=== PATIENT | male | born 1950 | race Caucasian/White ===

== ENCOUNTER 2022-09-25 14:37 | Inpatient (IN) | payer MEDICARE ==
[2022-09-25] MEDS ORDERED: SODIUM CHLORIDE 0.9% 1,000 ML IV ONE ×2 (15:43→18:56)
[2022-09-25] MEDS ORDERED: VERAPAMIL 2.5 MG/ML 2 ML AMP ONE (17:45)
[2022-09-25] MEDS ORDERED: HEPARIN SODIUM 1,000 UN/ML (10ML VL) ONE (17:45)
[2022-09-25] MEDS ORDERED: TICAGRELOR 90 MG TAB ONE (18:13)
[2022-09-25] MEDS ORDERED: HEPARIN SODIUM 1,000 UN/ML (10ML VL) IV ONE ×2 (18:14→19:19)
[2022-09-25] MEDS ORDERED: MIDAZOLAM 2 MG/2 ML VIAL IV ONE (18:15)
[2022-09-25] MEDS ORDERED: TICAGRELOR 90 MG TAB PO ONE (18:15)
[2022-09-25] MEDS ORDERED: VERAPAMIL SYRINGE (5 MG/10 ML) INTRAARTER ONE (18:15)
[2022-09-25] MEDS: NITROGLYCERIN 1000MCG/10ML SYRINGE INTRACORON ONE ×2 (18:29→18:58)
[2022-09-25] MEDS ORDERED: IOPAMIDOL-370 100ML BTL INJ ONE ×2 (18:34→19:16)
[2022-09-25] MEDS ORDERED: NITROGLYCERIN 1000MCG/10ML SYRINGE IV ONE (19:04)
[2022-09-25] MEDS ORDERED: MAG HYDROX/AL HYDROX/SIMETH 30 ML CUP PO PRN (19:13)
[2022-09-25] MEDS ORDERED: ZOLPIDEM 5 MG TAB PO PRN (19:13)
[2022-09-25] MEDS ORDERED: NITROGLYCERIN SL TABS 0.4 MG TAB SUBLINGUAL PRN (19:13)
[2022-09-25] MEDS ORDERED: ATROPINE SULFATE 0.1 MG/ML 10ML SYRINGE IV PRN (19:13)
[2022-09-25] MEDS ORDERED: RX INFO: IV CONTRAST WAS GIVEN 1 EACH MISC MISCELLANE PRN (19:13)
[2022-09-25] MEDS ORDERED: SODIUM CHLORIDE 0.9% 1,000 ML in EMPTY BAG 1 BAG IV SCH (19:15)
--- NOTE | 2022-09-25 19:19 | P.PCN ---
Date of Procedure: 09/25/22 Operative Findings: PERCUTANEOUS CORONARY INTERVENTION Performing physician Jewel Valiente M.D. Procedure Performed: 1. Successful stenting of the proximal LCx using 3.25 x 15 mm Xience drug- eluting stent with an excellent angiographic results. 2. Successful stending of the mid LAD using 3.5 x 18 mm Xience drug-eluting stent with an excellent angiographic result. 3. Successful balloon angioplasty of the first diagonal branch of the LAD 4. Adjunctive use of intravascular ultrasound Indication: Unstable angina in this 72-year-old gentleman who presented to the hospital with chest discomfort and underwent a heart catheterization at [facility] and that revealed critical 2 vessels CAD Approach: Right radial artery Complications: None Level of Sedation: Moderate with a sedation length of 58 minutes Procedure Discussion: The heart catheterization was performed at [facility]. Anticoagulation was initiated using heparin with continuous ACT monitoring. The left main was engaged using a JL 3.5 guiding catheter. I did wire the left circumflex using a run-through wire. Intravascular ultrasound was performed and showed a diameter of the left circumflex was 3.5 mm. I did balloon angioplasty using 3 mm balloon before I deployed 3.25 x 15 mm stent where the stent was positioned under fluoroscopy guidance and deployed under fluoroscopy guidance. The following angiogram showed an excellent angiographic results. Subsequently the wire was directed toward the LAD. It was positioned in the apical area of the LAD. Subsequently I wire the first diagonal branch using a run-through wire. Balloon angioplasty of the LAD was performed using 3 mm balloon and 4 the diagonal using 2.5 mm balloon. Subsequently I deployed 3.25 x 18 mm stent in the LAD across it that a core the stent was positioned under fluoroscopy guidance and deployed under its nominal pressure. Postdilatation was performed after intravascular ultrasound was performed. I did postdilated using 3.75 mm balloon. Please note that the LAD was imaged as well and showed a diameter about 3.5-4 mm before we did the balloon angioplasty. The procedure was completed was no complication. Postprocedure Management: 1. Dual antiplatelet therapy using aspirin and Brilinta for 6 month 2. Aggressive cholesterol control 3. Risk factors modification
[2022-09-25] MEDS: TICAGRELOR 90 MG TAB PO SCH (19:44)
[2022-09-25] MEDS: ATORVASTATIN 80 MG TAB PO SCH (19:44)
[2022-09-26 07:00] LABS: African American GFR (CKD) >90 (>60 ml/min/1.73 sqM); Non-African American GFR(CKD) 90 (>60 ml/min/1.73 sqM)
[2022-09-26] MEDS: ASPIRIN 81 MG PO SCH (10:09)
[2022-09-26] MEDS: TICAGRELOR 90 MG TAB PO SCH ×2 (10:09→23:52)
--- NOTE | 2022-09-26 13:18 | P.PN ---
Subjective HISTORY OF PRESENT ILLNESS: This is a 72-year-old male who underwent cardiac catheterization yesterday with Dr. Ibarra. Patient underwent stenting of the proximal left circumflex and mid LAD. Patient also underwent balloon angioplasty of first diagnosed branch of LAD. Patient examined this morning at the bedside. Patient denies chest pain or pressure. He denies shortness of breath. Vital signs are stable. Echocardiogram performed at [facility] revealed normal left ventricular systolic function, mild mitral regurgitation, and aortic sclerosis without stenosis. PHYSICAL EXAM: VITAL SIGNS: Reviewed. GENERAL: Well-developed in no acute distress. NECK: Supple. No JVD or thyromegaly LUNGS: Respirations even and unlabored. Lungs essentially clear to auscultation bilaterally. HEART: Regular rate and rhythm. S1 and S2 heard. EXTREMITIES: Normal range of motion. No clubbing or cyanosis. Peripheral pulses intact. No lower extremity edema ASSESSMENT: Chest pain, status post cardiac catheterization as above Hypothyroidism PLAN: Continue doing antiplatelet therapy with aspirin and Brilinta Continue high intensity statin No beta tim at this time secondary to bradycardia Continue to monitor patient for an additional 24 hours Anticipate discharge home tomorrow Nurse practitioner note has been reviewed by physician. Signing provider agrees with the documented findings, assessment, and plan of care. Objective - Vital Signs Vital signs: Vital Signs Temp 97.6 F 09/26/22 08:00 Pulse 58 L 09/26/22 08:00 Resp 16 09/26/22 08:00 BP 103/61 09/26/22 08:00 Pulse Ox 98 09/26/22 09:01 FiO2 Intake & Output 09/25/22 09/26/22 09/26/22 18:59 06:59 18:59 Intake Total 500 540 Balance 500 540 Weight 99.337 kg 99.337 kg Intake: IV 500 Oral 540 Other: Voiding Method Toilet # Voids 1 - Labs CBC & Chem 7: 09/26/22 06:16
[2022-09-26 15:31] VITALS: BMI 28.8
[2022-09-26] MEDS: LEVOTHYROXINE 125 MCG TAB PO SCH (17:09)
[2022-09-26] MEDS: ATORVASTATIN 80 MG TAB PO SCH (23:52)
--- NOTE | 2022-09-27 01:24 | HP ---
HISTORY AND PHYSICAL A 72-year-old white male, came transferred from [facility] after heart catheterization shows LAD blockages. He was getting chest pain and exertional angina doing outside work in his yard. He is found to have stents placed in his LAD x2 and maybe a right coronary artery balloon angioplasty. He is doing well. Currently at this time, walking in his room. He is going to be kept another 24 hours per Cardiology. MEDICATIONS: He is on, 1. Lipitor 80 mg daily. 2. Aspirin 81 mg daily. 3. Brilinta 90 mg b.i.d. 4. Ambien p.r.n. for sleep 5 mg. 5. Nitrostat sublingual p.r.n. CONDITION: Stable. PROGNOSIS: Guarded. Ambulate as tolerated. He also takes Levoxyl at home. He needs to be placed back on this at this time. REVIEW OF SYSTEMS: A 14-point review of systems currently at this time is good. PHYSICAL EXAMINATION: VITAL SIGNS: Temperature 97.4, pulse 54 to 61, respiratory rate 16 to 18, blood pressure 103 to 120 over 60s to 70s, O2 of 100% on room air. CARDIOVASCULAR: S1, S2. LUNGS: Clear. GI: Soft. HEMATOLOGY: Negative Homans. PSYCH: Fair mood and affect. NEUROLOGIC: Alert and oriented x3. ASSESSMENT: Exertional angina. Ejection fraction on echo was 53%, status post angioplasty for coronary artery disease. Stents were placed x2. Possible balloon angioplasty, started on stents. Scanty beta blockers due to hypotension, possibly initiate a low dose if his blood pressure comes up. Continue current treatments. Prognosis is guarded. Possible discharge home tomorrow if cardiology clears. MMODL / IJN: [id number] /
[2022-09-27] MEDS: LEVOTHYROXINE 125 MCG TAB PO SCH (06:35)
[2022-09-27 08:27] LABS: Basophils % (A) 0 %; Eosinophils # (A) 0.2 k/uL (0-0.7); Eosinophils % (A) 3 %; HCT 40.5 % (39.0-53.0); HGB 13.7 gm/dL (13.0-17.5); Lymphocytes # (A) 0.9 k/uL (1.0-4.8); Lymphocytes % (A) 19 %; MCH 30.8 pg (25.0-35.0); MCHC 33.8 g/dL (31.0-37.0); MCV 91.3 fL (80.0-100.0); Mean Platelet Volume 7.1; Monocytes # (A) 0.3 k/uL (0-1.0); Monocytes % (A) 6 %; Neutrophils # (A) 3.6 k/uL (1.3-7.7); Neutrophils % (A) 71 %; Platelet Count 215 k/uL (150-450); RBC 4.44 m/uL (4.30-5.90); RDW 13.1 % (11.5-15.5); WBC 5.1 k/uL (3.8-10.6)
[2022-09-27] MEDS: ASPIRIN 81 MG PO SCH (08:57)
[2022-09-27] MEDS: TICAGRELOR 90 MG TAB PO SCH (08:57)
[2022-09-27 08:59] LABS: Potassium 3.8 mmol/L (3.5-5.1)
[2022-09-27 09:00] LABS: African American GFR (CKD) >90 (>60 ml/min/1.73 sqM); Anion Gap 8 mmol/L; Blood Urea Nitrogen 10 mg/dL (9-20); Calcium 8.3 mg/dL (8.4-10.2); Carbon Dioxide 24 mmol/L (22-30); Chloride 107 mmol/L (98-107); Glucose 120 mg/dL (74-99); Magnesium 2.1 mg/dL (1.6-2.3); Non-African American GFR(CKD) >90 (>60 ml/min/1.73 sqM); Sodium 139 mmol/L (137-145)
--- NOTE | 2022-09-27 13:09 | P.PN ---
Subjective HISTORY OF PRESENT ILLNESS: This is a 72-year-old male who underwent cardiac catheterization yesterday with Dr. Ibarra. Patient underwent stenting of the proximal left circumflex and mid LAD. Patient also underwent balloon angioplasty of first diagnosed branch of LAD. Patient examined this morning at the bedside. Patient denies chest pain or pressure. He denies shortness of breath. Vital signs are stable. Echocardiogram performed at [facility] revealed normal left ventricular systolic function, mild mitral regurgitation, and aortic sclerosis without stenosis. 09/27/2022 Patient examined this morning. Patient is sitting up in the chair. He denies chest pain or pressure. He denies shortness of breath. He has been up ambulating without difficulty. Vital signs are stable. PHYSICAL EXAM: VITAL SIGNS: Reviewed. GENERAL: Well-developed in no acute distress. NECK: Supple. No JVD or thyromegaly LUNGS: Respirations even and unlabored. Lungs essentially clear to auscultation bilaterally. HEART: Regular rate and rhythm. S1 and S2 heard. EXTREMITIES: Normal range of motion. No clubbing or cyanosis. Peripheral pulses intact. No lower extremity edema ASSESSMENT: Chest pain, status post cardiac catheterization as above Hypothyroidism PLAN: Continue dual antiplatelet therapy with aspirin and Brilinta Continue high intensity statin No beta tim at this time secondary to bradycardia Patient is stable for discharge home today from a cardiac standpoint Nurse practitioner note has been reviewed by physician. Signing provider agrees with the documented findings, assessment, and plan of care. Objective - Vital Signs Vital signs: Vital Signs Temp 97.9 F 09/27/22 08:00 Pulse 52 L 09/27/22 08:00 Resp 18 09/27/22 08:00 BP 103/63 09/27/22 08:00 Pulse Ox 98 09/27/22 08:35 FiO2 Intake & Output 09/26/22 09/27/22 09/27/22 18:59 06:59 18:59 Intake Total 658 360 Balance 658 360 Weight 99.337 kg Intake: Oral 658 360 Other: Voiding Method Toilet Toilet # Voids 2 1 - Labs CBC & Chem 7: 09/27/22 07:50 09/27/22 07:50 Labs: Abnormal Lab Results - Last 24 Hours (Table) 09/27/22 09/27/22 Range/Units 07:50 07:50 Lymphocytes # 0.9 L (1.0-4.8) k/uL Glucose 120 H (74-99) mg/dL Calcium 8.3 L (8.4-10.2) mg/dL
[2022-09-27 16:59] VITALS: BP 132/78; PULSE 51; RESP 20; TEMP 97.6
--- NOTE | 2022-09-28 03:30 | DS ---
DISCHARGE SUMMARY HISTORY OF PRESENT ILLNESS: A 72-year-old white male came to the hospital with abnormal cardiac catheterization, had stents placed into his mid LAD in his proximal circumflex. He also had a balloon angioplasty of the diagonal to LAD. The patient stabilized medically. He was sent home on Brilinta 90 b.i.d., atorvastatin 80 daily, aspirin 81 daily, nitroglycerin sublingual p.r.n. 0.4 mg every 3 to 5 hours p.r.n. CONDITION: Stable. PROGNOSIS: Guarded. He also go home on his levothyroxine 125 mcg daily. CONDITION: Stable. Follow up as an outpatient with Dr. Valiente. He has an appointment with him as an outpatient. Please see further orders. DIET: As tolerated. MMODL / IJN: [id number] /
== END 2022-09-27 18:48 | disposition home or self-care (01) | DRG 247 ==
LOC: 3SCARD 15:19
PROVIDERS: ADMIT Family Medicine; ATTEND Family Medicine
PROC: B241ZZ3 Ultrasonography of Multiple Coronary Arteries, Intravascular (ICD-10-PCS; 2022-09-25)
PROC: 027135Z Dilation of Coronary Artery, Two Arteries with Two Drug-eluting Intraluminal Devices, Percutaneous Approach (ICD-10-PCS; principal; 2022-09-25 19:45)
PROC: 02703ZZ Dilation of Coronary Artery, One Artery, Percutaneous Approach (ICD-10-PCS; 2022-09-25 19:45)
PROC: 4A023N7 Measurement of Cardiac Sampling and Pressure, Left Heart, Percutaneous Approach (ICD-10-PCS; 2022-09-25 19:45)
PROC: B2161ZZ Fluoroscopy of Right and Left Heart using Low Osmolar Contrast (ICD-10-PCS; 2022-09-25 19:45)
DX: I25.110 Atherosclerotic heart disease of native coronary artery with unstable angina pectoris (principal); E03.9 Hypothyroidism, unspecified; R00.1 Bradycardia, unspecified; I08.0 Rheumatic disorders of both mitral and aortic valves; Z79.82 Long term (current) use of aspirin; Z79.890 Hormone replacement therapy
CPT/HCPCS: 80048; 82565; 83735; 85025; 92921; 92978; 94760

== ENCOUNTER 2022-11-28 09:57 | Observation (INO) | payer MEDICARE ==
[2022-11-28 10:33] LABS: Basophils % (A) 0 %; Eosinophils # (A) 0.1 k/uL (0-0.7); Eosinophils % (A) 2 %; HCT 41.8 % (39.0-53.0); HGB 13.9 gm/dL (13.0-17.5); Lymphocytes # (A) 0.9 k/uL (1.0-4.8); Lymphocytes % (A) 25 %; MCH 30.5 pg (25.0-35.0); MCHC 33.3 g/dL (31.0-37.0); MCV 91.5 fL (80.0-100.0); Mean Platelet Volume 7.3; Monocytes # (A) 0.3 k/uL (0-1.0); Monocytes % (A) 7 %; Neutrophils # (A) 2.4 k/uL (1.3-7.7); Neutrophils % (A) 63 %; Platelet Count 218 k/uL (150-450); RBC 4.57 m/uL (4.30-5.90); RDW 13.3 % (11.5-15.5); WBC 3.7 k/uL (3.8-10.6)
--- NOTE | 2022-11-28 10:41 | ED ---
General Adult HPI - General Chief complaint: Chest Pain Stated complaint: CHEST PAIN SENT BY DR VALIENTE Time Seen by Provider: 11/28/22 10:13 Source: patient, RN notes reviewed, old records reviewed Mode of arrival: ambulatory Limitations: no limitations - History of Present Illness Initial comments: 72-year-old male presenting for evaluation of chest pain. Patient had stents placed 2 months prior. He states that he had a period where he was feeling qu ite good, no chest pain whatsoever. Over the past one week or so he is developed exertional chest discomfort which she states is similar in character but less severe than his [place] 2 months ago. The patient has been compliant with 2 antiplatelet therapy and statin therapy. He denies diaphoresis or vomiting. He is chest pain-free at the time my evaluation. 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 - Related Data Home Medications Medication Instructions Recorded Confirmed Levothyroxine Sodium [Levoxyl] 125 mcg PO DAILY 09/25/22 11/28/22 Previous Rx's Medication Instructions Recorded Aspirin 81 mg PO DAILY #90 tab 09/27/22 Atorvastatin [Lipitor] 80 mg PO HS #90 tab 09/27/22 Nitroglycerin Sl Tabs [Nitrostat] 0.4 mg SUBLINGUAL Q5M PRN #100 tab 09/27/22 Ticagrelor [Brilinta] 90 mg PO BID #180 tab 09/27/22 Allergies Allergy/AdvReac Type Severity Reaction Status Date / Time No Known Allergies Allergy Verified 11/28/22 10:40 Review of Systems ROS Statement: Those systems with pertinent positive or pertinent negative responses have been documented in the HPI. ROS Other: All systems not noted in ROS Statement are negative. Past Medical History Past Medical History: Hyperlipidemia Additional Past Medical History / Comment(s): 2 stents placed August 2022. History of Any Multi-Drug Resistant Organisms: None Reported Past Surgical History: No Surgical Hx Reported, Heart Catheterization With Stent Past Anesthesia/Blood Transfusion Reactions: No Reported Reaction Past Psychological History: No Psychological Hx Reported Smoking Status: Never smoker Past Alcohol Use History: None Reported Past Drug Use History: None Reported - Past Family History Father Family Medical History: Congestive Heart Failure (CHF) Mother Family Medical History: Dementia General Exam Limitations: no limitations General appearance: alert, in no apparent distress Head exam: Present: atraumatic, normocephalic Eye exam: Present: normal appearance, PERRL ENT exam: Present: normal exam Neck exam: Present: normal inspection. Absent: tenderness, meningismus Respiratory exam: Present: normal lung sounds bilaterally. Absent: respiratory distress, wheezes Cardiovascular Exam: Present: regular rate, normal rhythm GI/Abdominal exam: Present: soft. Absent: distended, tenderness, guarding Extremities exam: Present: normal inspection, normal capillary refill. Absent: pedal edema, calf tenderness Neurological exam: Present: alert, oriented X3, CN II-XII intact. Absent: motor sensory deficit Psychiatric exam: Present: normal affect, normal mood Skin exam: Present: warm, dry, intact. Absent: cyanosis, diaphoretic Course Vital Signs 11/28/22 11/28/22 10:03 11:00 Temperature 97.8 F Pulse Rate 60 58 L Respiratory 16 18 Rate Blood Pressure 158/83 157/74 O2 Sat by Pulse 99 99 Oximetry Medical Decision Making - Medical Decision Making Was pt. sent in by a medical professional or institution (, PA, BENEFITS SPECIALIST RECRUITER, urgent care, hospital, or halfway...) When possible be specific @ -Sent in by cardiology Did you speak to anyone other than the patient for history (EMS, parent, family, police, friend...)? What history was obtained from this source @ -No Did you review nursing and triage notes (agree or disagree)? Why? @ -I reviewed and agree with nursing and triage notes Were old charts reviewed (outside hosp., previous admission, EMS record, old EKG, old radiological studies, urgent care reports/EKG's, halfway records)? Report findings @ -No old charts were reviewed Differential Diagnosis (chest pain, altered mental status, abdominal pain women, abdominal pain men, vaginal bleeding, weakness, fever, dyspnea, syncope, headache, dizziness, GI bleed, back pain, seizure, CVA, palpatations, mental health, musculoskeletal)? @ Differential Chest Pain: Stable Angina, Unstable Angina, STEMI, NSTEMI Aortic Dissection, Pneumothorax, Musculoskeletal, Esophageal Spasm GERD, Cholecystitis, Pancreatitis, Zoster, this is not meant to be an all-inclusive list. EKG interpreted by me (3pts min.). @ -EKG: Sinus bradycardia, intraventricular conduction delay, rate 55, HI interval 157, QRS duration 116, QTC 424, similar QRS morphology compared to previous EKG in August 2022. X-rays interpreted by me (1pt min.). @Negative for acute cardiopulmonary findings, no pneumothorax, no focal pneumonia. Normal cardiac silhouette. CT interpreted by me (1pt min.). @ -None done U/S interpreted by me (1pt. min.). @ -None done What testing was considered but not performed or refused? (CT, X-rays, U/S, labs)? Why? @ -None What meds were considered but not given or refused? Why? @ -None Did you discuss the management of the patient with other professionals (professionals i.e. , PA, BENEFITS SPECIALIST RECRUITER, lab, RT, psych nurse, social science instructor, keeper helper, teacher, chief learning officer, case making machine operator)? Give summary @ -EMH Was smoking cessation discussed for >3mins.? @ -No Was critical care preformed (if so, how long)? @ -No Were there social determinants of health that impacted care today? How? (Radhika elessness, low income, unemployed, alcoholism, drug addiction, transportation, low edu. Level, literacy, decrease access to med. care, alf, rehab)? @ -No Was there de-escalation of care discussed even if they declined (Discuss DNR or withdrawal of care, Hospice)? DNR status @ -No What co-morbidities impacted this encounter? (DM, HTN, Smoking, COPD, CAD, Cancer, CVA, ARF, Chemo, Hep., AIDS, mental health diagnosis, sleep apnea, morbid obesity)? @ -Coronary artery disease Was patient admitted / discharged? Hospital course, mention meds given and route, prescriptions, significant lab abnormalities, going to OR and other pertinent info. @ -Patient will be admitted for serial chronic enzymes, telemetry, cardiology consultation. Undiagnosed new problem with uncertain prognosis? @ -No Drug Therapy requiring intensive monitoring for toxicity (Heparin, Nitro, Insulin, Cardizem)? @ -No Were any procedures done? @ -No Diagnosis/symptom? @ -[Chest pain Acute, or Chronic, or Acute on Chronic? @ Acute Uncomplicated (without systemic symptoms) or Complicated (systemic symptoms)? @ -default Side effects of treatment? @ -No Exacerbation, Progression, or Severe Exacerbation? @ -No Poses a threat to life or bodily function? How? (Chest pain, [place], [place], pneumonia, PE, COPD, DKA, ARF, appy, cholecystitis, CVA, Diverticulitis, Homicidal, Suicidal, threat to staff... and all critical care pts) @ -Yes, chest pain - Lab Data Result diagrams: 11/28/22 10:24 11/28/22 10:24 Lab Results 11/28/22 11/28/22 11/28/22 Range/Units 10:24 10:24 10:24 WBC 3.7 L (3.8-10.6) k/uL RBC 4.57 (4.30-5.90) m/uL Hgb 13.9 (13.0-17.5) gm/dL Hct 41.8 (39.0-53.0) % MCV 91.5 (80.0-100.0) fL MCH 30.5 (25.0-35.0) pg MCHC 33.3 (31.0-37.0) g/dL RDW 13.3 (11.5-15.5) % Plt Count 218 (150-450) k/uL MPV 7.3 Neutrophils % 63 % Lymphocytes % 25 % Monocytes % 7 % Eosinophils % 2 % Basophils % 0 % Neutrophils # 2.4 (1.3-7.7) k/uL Lymphocytes # 0.9 L (1.0-4.8) k/uL Monocytes # 0.3 (0-1.0) k/uL Eosinophils # 0.1 (0-0.7) k/uL Basophils # 0.0 (0-0.2) k/uL PT 10.1 (9.0-12.0) sec INR 0.9 (<1.2) APTT 22.9 (22.0-30.0) sec Sodium 139 (137-145) mmol/L Potassium 4.0 (3.5-5.1) mmol/L Chloride 104 (98-107) mmol/L Carbon Dioxide 27 (22-30) mmol/L Anion Gap 8 mmol/L BUN 13 (9-20) mg/dL Creatinine 0.73 (0.66-1.25) mg/dL Est GFR (CKD-EPI)AfAm >90 (>60 ml/min/1.73 sqM) Est GFR (CKD-EPI)NonAf >90 (>60 ml/min/1.73 sqM) Glucose 103 H (74-99) mg/dL Calcium 9.2 (8.4-10.2) mg/dL Magnesium 2.0 (1.6-2.3) mg/dL Total Bilirubin 0.8 (0.2-1.3) mg/dL AST 33 (17-59) U/L ALT 31 (4-49) U/L Alkaline Phosphatase 66 (38-126) U/L Troponin I (0.000-0.034) ng/mL NT-Pro-B Natriuret Pep 197 pg/mL Total Protein 7.2 (6.3-8.2) g/dL Albumin 4.3 (3.5-5.0) g/dL 11/28/22 Range/Units 10:24 WBC (3.8-10.6) k/uL RBC (4.30-5.90) m/uL Hgb (13.0-17.5) gm/dL Hct (39.0-53.0) % MCV (80.0-100.0) fL MCH (25.0-35.0) pg MCHC (31.0-37.0) g/dL RDW (11.5-15.5) % Plt Count (150-450) k/uL MPV Neutrophils % % Lymphocytes % % Monocytes % % Eosinophils % % Basophils % % Neutrophils # (1.3-7.7) k/uL Lymphocytes # (1.0-4.8) k/uL Monocytes # (0-1.0) k/uL Eosinophils # (0-0.7) k/uL Basophils # (0-0.2) k/uL PT (9.0-12.0) sec INR (<1.2) APTT (22.0-30.0) sec Sodium (137-145) mmol/L Potassium (3.5-5.1) mmol/L Chloride (98-107) mmol/L Carbon Dioxide (22-30) mmol/L Anion Gap mmol/L BUN (9-20) mg/dL Creatinine (0.66-1.25) mg/dL Est GFR (CKD-EPI)AfAm (>60 ml/min/1.73 sqM) Est GFR (CKD-EPI)NonAf (>60 ml/min/1.73 sqM) Glucose (74-99) mg/dL Calcium (8.4-10.2) mg/dL Magnesium (1.6-2.3) mg/dL Total Bilirubin (0.2-1.3) mg/dL AST (17-59) U/L ALT (4-49) U/L Alkaline Phosphatase (38-126) U/L Troponin I <0.012 (0.000-0.034) ng/mL NT-Pro-B Natriuret Pep pg/mL Total Protein (6.3-8.2) g/dL Albumin (3.5-5.0) g/dL Disposition Clinical Impression: Chest pain Disposition: ADMITTED IP TO THIS HOSP Condition: Stable Is patient prescribed a controlled substance at d/c from ED?: No Referrals: Jewel Valiente MD [Primary Care Provider] - 1-2 days Time of Disposition: 11:13
[2022-11-28 10:43] LABS: ALT 31 U/L (4-49); AST 33 U/L (17-59); African American GFR (CKD) >90 (>60 ml/min/1.73 sqM); Albumin 4.3 g/dL (3.5-5.0); Alkaline Phosphatase 66 U/L (38-126); Anion Gap 8 mmol/L; Blood Urea Nitrogen 13 mg/dL (9-20); Calcium 9.2 mg/dL (8.4-10.2); Carbon Dioxide 27 mmol/L (22-30); Chloride 104 mmol/L (98-107); Glucose 103 mg/dL (74-99); INR 0.9 (<1.2); Non-African American GFR(CKD) >90 (>60 ml/min/1.73 sqM); Partial Thromboplastin Time 22.9 sec (22.0-30.0); Prothrombin Time 10.1 sec (9.0-12.0); Sodium 139 mmol/L (137-145); Total Bilirubin 0.8 mg/dL (0.2-1.3); Total Protein 7.2 g/dL (6.3-8.2)
[2022-11-28 10:51] LABS: NT-Pro-B-Type Natriuretic Pept 197 pg/mL
--- NOTE | 2022-11-28 10:57 | XR ---
EXAMINATION TYPE: XR chest 2V DATE OF EXAM: 11/28/2022 10:46 AM COMPARISON: None TECHNIQUE: XR chest 2V Frontal and lateral views of the chest. CLINICAL INDICATION:Male, 72 years old with history of Chest Pain; FINDINGS: Lungs/Pleura: There is no evidence of pleural effusion, focal consolidation, or pneumothorax. Pulmonary vascularity: Unremarkable. Heart/mediastinum: Cardiomediastinal silhouette is unremarkable. Musculoskeletal: No acute osseous pathology. Mild degenerative changes of the thoracic spine. IMPRESSION: No acute cardiopulmonary disease/process.
[2022-11-28] MEDS ORDERED: NALOXONE 0.4 MG/ML 1 ML VIAL IV PRN (11:13)
[2022-11-28] MEDS ORDERED: ACETAMINOPHEN TAB 325 MG TAB PO PRN (11:13)
[2022-11-28] MEDS ORDERED: NITROGLYCERIN SL TABS 0.4 MG TAB SUBLINGUAL PRN (11:15)
--- NOTE | 2022-11-28 13:55 | P.HPIM ---
History of Present Illness H&P Date: 11/28/22 This is a pleasant 72-year-old male who presented to the emergency department with exertional chest pain. Patient reports he recently had stents placed in August of this year and was cleared to resume activity. Patient had been vacationing and in [facility] and started experiencing some mild chest burning and squeezing sensation during exertion. Patient will rest and this feeling would subside. Patient reports this feeling is less intense than when he came in and had stents placed. Patient reports he follows with Dr. Jones out of [facility] system with past medical history of hyperlipidemia, heart catheterization with stenting in August 2022, otherwise denies any other medical history. Patient does not smoke and denies alcohol use and denies any illicit drug use. Patient denies having any dizziness or lightheadedness or increased shortness of breath with these symptoms. Patient reports this had been ongoing for a few days prior to coming here and came for further evaluation. Cardiology has been consulted and patient is being admitted under observation for cardiology consult and evaluation. Chest x-ray shows no acute cardiopulmonary disease or process, EKG shows sinus bradycardia with a heart rate of 55 bpm. Labs reviewed show a WBC of 3.7, hemoglobin is stable at 13.9, platelets are 218, INR 0.9, sodium 139 with a potassium of 4.0, BUN is 13 and creatinine is 0.73, calcium 9.2, magnesium 2.0, troponins 2 have been negative and BNP is 197. Will await cardiology evaluation. Review Of Systems: Constitutional: No fever, no chills, no night sweats. No weight change. No weakness, fatigue or lethargy. No daytime sleepiness. EENT: No headache. No blurred vision or double vision, no loss of vision. No loss of Hearing, no ringing in the ears, no dizziness. No nasal drainage or congestion. No epistaxis. No sore throat. Lungs: No shortness of breath, cough, no sputum production. No wheezing. Cardiovascular: Reports intermittent chest pain with a burning/squeezing sensation with exertion, no lower extremity edema. No palpitations. No paroxysmal nocturnal dyspnea. No orthopnea. No lightheadedness or dizziness. No syncopal episodes. Abdominal: No abdominal pain. No nausea, vomiting. No diarrhea. No constipation. No bloody or tarry stools.. No loss of appetite. Genitourinary: No dysuria, increased frequency, urgency. No urinary retention. Musculoskeletal: No myalgias. No muscle weakness, no gait dysfunction, no frequent falls. No back pain. No neck pain. Integumentary: No wounds, no lesions. No rash or pruritus. No unusual bruising. No change in hair or nails. Neurologic: No aphasia. No facial droop. No change in mentation. No head injury. No headache. No paralysis. No paresthesia. Psychiatric: No depression. No anxiety. No mood swings. Endocrine: No abnormal blood sugars. No weight change. No excessive sweating or thirst. No cold intolerance. PHYSICAL EXAMINATION: GENERAL: The patient is alert and oriented x4, Well developed, well nourished. HEENT: Pupils are round and equally reacting to light. EOMI. no scleral icterus. No conjunctival pallor. Normocephalic, atraumatic. No pharyngeal erythema. No thyromegaly. CARDIOVASCULAR: S1 and S2 muffled PULMONARY: Breath sounds clear to auscultation with no wheezing or rhonchi noted ABDOMEN: soft. Nontender on exam. non-distended, normoactive bowel sounds. No palpable organomegaly. MUSCULOSKELETAL: No joint swelling or deformity. EXTREMITIES: No cyanosis, clubbing, or pedal edema. NEUROLOGICAL: Gross neurological examination did not reveal any focal deficits. SKIN: No rashes. Assessment: Chest pain, ruled out ACS with negative troponins Recent history of stenting of the proximal left circumflex and mid LAD in August 2022 History of hypothyroidism GI prophylaxis DVT prophylaxis Full code Plan: Patient is being admitted for chest pain for cardiology evaluation. Patient recently underwent stenting [address] Valiente All medications reviewed and resumed Troponins 2 are negative awaiting a third troponin and will be evaluated by cardiology. Continue telemetry monitoring Labs reviewed and within normal limits Await cardiology evaluation. The impression and plan of care has been dictated by Annabelle Cedeño, nurse practitioner as directed. Dr. Cassandra MD I have performed a history and examination and MDM of this patient, discussed the same with the dictator, and agree with the dictator's assessment and plan as written ,documented as a scribe. Based on total visit time, I have performed more than 50% of the visit. Any additional findings or plans will be noted. Past Medical History Past Medical History: Hyperlipidemia Additional Past Medical History / Comment(s): 2 stents placed August 2022. History of Any Multi-Drug Resistant Organisms: None Reported Past Surgical History: No Surgical Hx Reported, Heart Catheterization With Stent Past Anesthesia/Blood Transfusion Reactions: No Reported Reaction Past Psychological History: No Psychological Hx Reported Smoking Status: Never smoker Past Alcohol Use History: None Reported Past Drug Use History: None Reported - Past Family History Father Family Medical History: Congestive Heart Failure (CHF) Mother Family Medical History: Dementia Medications and Allergies Home Medications Medication Instructions Recorded Confirmed Type Levothyroxine Sodium [Levoxyl] 125 mcg PO DAILY 09/25/22 11/28/22 History Aspirin 81 mg PO DAILY #90 tab 09/27/22 11/28/22 Rx Atorvastatin [Lipitor] 80 mg PO HS #90 tab 09/27/22 11/28/22 Rx Nitroglycerin Sl Tabs [Nitrostat] 0.4 mg SUBLINGUAL Q5M PRN #100 tab 09/27/22 11/28/22 Rx Ticagrelor [Brilinta] 90 mg PO BID #180 tab 09/27/22 11/28/22 Rx Allergies Allergy/AdvReac Type Severity Reaction Status Date / Time No Known Allergies Allergy Verified 11/28/22 10:40 Physical Exam Vitals: Vital Signs Temp Pulse Resp BP Pulse Ox 11/28/22 12:00 50 L 18 113/75 98 11/28/22 11:00 58 L 18 157/74 99 11/28/22 10:03 97.8 F 60 16 158/83 99 Intake and Output 11/27/22 11/28/22 11/28/22 22:59 06:59 14:59 Other: Weight 90.718 kg Results CBC & Chem 7: 11/28/22 10:24 11/28/22 10:24 Labs: Abnormal Lab Results - Last 24 Hours (Table) 11/28/22 11/28/22 Range/Units 10:24 10:24 WBC 3.7 L (3.8-10.6) k/uL Lymphocytes # 0.9 L (1.0-4.8) k/uL Glucose 103 H (74-99) mg/dL
[2022-11-28] MEDS: ATORVASTATIN 80 MG TAB PO SCH (20:45)
[2022-11-28] MEDS: TICAGRELOR 90 MG TAB PO SCH (20:46)
[2022-11-29] MEDS: LEVOTHYROXINE 125 MCG TAB PO SCH (05:58)
[2022-11-29] MEDS: ASPIRIN 81 MG PO SCH (08:51)
[2022-11-29] MEDS: TICAGRELOR 90 MG TAB PO SCH ×2 (08:52→20:21)
[2022-11-29] MEDS ORDERED: ALPRAZolam 0.5 MG TAB PO PRN (10:27)
[2022-11-29] MEDS ORDERED: ALPRAZolam 0.25 MG TAB PO PRN (10:27)
[2022-11-29] MEDS ORDERED: NITROGLYCERIN SL TABS 0.4 MG TAB SUBLINGUAL PRN (10:27)
--- NOTE | 2022-11-29 10:35 | P.CRDCN ---
History of Present Illness History of present illness: HISTORY OF PRESENT ILLNESS: This is a 72-year-old male with a past medical history significant for hypertension, hyperlipidemia, and coronary artery disease with recent stenting of the circumflex and LAD in August 2022. Patient follows in the office with Dr. Valiente. We have been asked to see the patient in consultation for chest pain. Patient examined at the bedside. patient states he has been doing well since his stenting in August. He states he has not been having any chest pain or pressure. He denied having any shortness of breath. He states that he was up [place] last week and on he was hiking when he developed chest pain. He states he had episodes of chest pain on Saturday and Saturday but it was very minimal at that time. He states on Saturday he took his dog for a walk and began to have chest pain again so he turned around and went back to rest and his pain resolved. He states on Saturday he came home from [facility] and has been taking it easy and decided to come to the emergency room for further evaluation. he states the pain is only with exertion. He reports the pain feels similar to the pain he experienced in August when he required stenting. At the time of examination, the patient denies chest pain or pressure. the patient states he has been compliant with his medications. * EKG reveals sinus mechanism with no signs of acute ischemia * Chest xray negative for acute process * Current home cardiac medications include aspirin 81 mg daily, Lipitor 80 mg at night, and Brilinta 90mg BID * patient underwent echocardiogram in August 2022 revealing normal ejection fraction with aortic sclerosis REVIEW OF SYSTEMS: At the time of my exam: CONSTITUTIONAL: Denies fever or chills. HEENT: Denies blurred vision, vision changes, or eye pain. Denies hemoptysis CARDIOVASCULAR: Denies chest pain. Denies orthopnea. Denies PND. Denies palpitations RESPIRATORY: Denies shortness of breath. GASTROINTESTINAL: Denies abdominal pain. Denies nausea or vomiting. HEMATOLOGIC: Denies bleeding disorders. GENITOURINARY: Denies any blood in urine. SKIN: Denies pruitis. Denies rash. PHYSICAL EXAM: VITAL SIGNS: Reviewed. GENERAL: Well-developed in no acute distress. HEENT: Head is normocephalic. Pupils are equal, round. Sclerae anicteric. Mucous membranes of the mouth are moist. Neck supple. No JVD or thyromegaly LUNGS: Respirations even and unlabored. Lungs essentially clear to auscultation bilaterally. HEART: Regular rate and rhythm. S1 and S2 heard. ABDOMEN: Soft. Nondistended. Nontender. EXTREMITIES: Normal range of motion. No clubbing or cyanosis. Peripheral pulses intact. No lower extremity edema NEUROLOGIC: Awake and alert. Oriented x 3. ASSESSMENT: Chest pain, concerning for unstable angina Coronary artery disease with recent stenting of the circumflex and LAD, August 2022 Hypertension Hyperlipidemia PLAN: Resume home cardiac medications NPO at midnight Patient to undergo cardiac catheterization tomorrow with Dr. Valiente Further recommendations pending patient's course Nurse practitioner note has been reviewed by physician. Signing provider agrees with the documented findings, assessment, and plan of care. Past Medical History Past Medical History: Hyperlipidemia Additional Past Medical History / Comment(s): 2 stents placed August 2022. History of Any Multi-Drug Resistant Organisms: None Reported Past Surgical History: No Surgical Hx Reported, Heart Catheterization With Stent Past Anesthesia/Blood Transfusion Reactions: No Reported Reaction Date of Last Stent Placement:: august 2022 Past Psychological History: No Psychological Hx Reported Smoking Status: Never smoker Past Alcohol Use History: None Reported Past Drug Use History: None Reported - Past Family History Father Family Medical History: Congestive Heart Failure (CHF) Mother Family Medical History: Dementia Medications and Allergies Home Medications Medication Instructions Recorded Confirmed Type Levothyroxine Sodium [Levoxyl] 125 mcg PO DAILY 09/25/22 11/28/22 History Aspirin 81 mg PO DAILY #90 tab 09/27/22 11/28/22 Rx Atorvastatin [Lipitor] 80 mg PO HS #90 tab 09/27/22 11/28/22 Rx Nitroglycerin Sl Tabs [Nitrostat] 0.4 mg SUBLINGUAL Q5M PRN #100 tab 09/27/22 11/28/22 Rx Ticagrelor [Brilinta] 90 mg PO BID #180 tab 09/27/22 11/28/22 Rx Allergies Allergy/AdvReac Type Severity Reaction Status Date / Time No Known Allergies Allergy Verified 11/28/22 10:40 Physical Exam Vitals: Vital Signs Temp Pulse Pulse Pulse Resp BP BP 11/29/22 07:00 97.9 F 55 L 16 128/68 11/29/22 02:20 98.3 F 52 L 13 115/61 11/28/22 19:40 98.1 F 55 L 14 121/67 11/28/22 15:00 98.1 F 54 L 18 124/71 11/28/22 14:00 51 L 16 128/74 11/28/22 13:00 56 L 16 127/75 11/28/22 12:00 50 L 18 113/75 11/28/22 11:00 58 L 18 157/74 11/28/22 10:03 97.8 F 60 16 158/83 Pulse Ox 11/29/22 07:00 100 11/29/22 02:20 98 11/28/22 19:40 97 11/28/22 15:00 100 11/28/22 14:00 99 11/28/22 13:00 99 11/28/22 12:00 98 11/28/22 11:00 99 11/28/22 10:03 99 Intake and Output 11/28/22 11/29/22 11/29/22 22:59 06:59 14:59 Other: # Voids 2 1 Weight 90.718 kg Results 11/28/22 10:24 11/28/22 10:24 Cardiac Enzymes 11/28/22 11/28/22 11/28/22 Range/Units 10:24 10:24 12:16 AST 33 (17-59) U/L Troponin I <0.012 <0.012 (0.000-0.034) ng/mL 11/28/22 Range/Units 15:51 AST (17-59) U/L Troponin I <0.012 (0.000-0.034) ng/mL Coagulation 11/28/22 Range/Units 10:24 PT 10.1 (9.0-12.0) sec APTT 22.9 (22.0-30.0) sec CBC 11/28/22 Range/Units 10:24 WBC 3.7 L (3.8-10.6) k/uL RBC 4.57 (4.30-5.90) m/uL Hgb 13.9 (13.0-17.5) gm/dL Hct 41.8 (39.0-53.0) % Plt Count 218 (150-450) k/uL Comprehensive Metabolic Panel 11/28/22 Range/Units 10:24 Sodium 139 (137-145) mmol/L Potassium 4.0 (3.5-5.1) mmol/L Chloride 104 (98-107) mmol/L Carbon Dioxide 27 (22-30) mmol/L BUN 13 (9-20) mg/dL Creatinine 0.73 (0.66-1.25) mg/dL Glucose 103 H (74-99) mg/dL Calcium 9.2 (8.4-10.2) mg/dL AST 33 (17-59) U/L ALT 31 (4-49) U/L Alkaline Phosphatase 66 (38-126) U/L Total Protein 7.2 (6.3-8.2) g/dL Albumin 4.3 (3.5-5.0) g/dL Current Medications Generic Name Dose Route Start Last Admin Trade Name Freq PRN Reason Stop Dose Admin Acetaminophen 650 mg 11/28/22 11:13 Acetaminophen Tab 325 Mg Tab PO Q6HR PRN Mild Pain or Fever > 100.5 Aspirin 81 mg 11/29/22 09:00 Aspirin 81 Mg PO DAILY RAMOS Atorvastatin Calcium 80 mg 11/28/22 21:00 11/28/22 20:45 Atorvastatin 80 Mg Tab PO Not Given HS RAMOS Levothyroxine Sodium 125 mcg 11/29/22 06:30 11/29/22 05:58 Levothyroxine 125 Mcg Tab PO 125 mcg DAILY@0630 RAMOS Administration Naloxone HCl 0.2 mg 11/28/22 11:13 Naloxone 0.4 Mg/Ml 1 Ml Vial IV Q2M PRN Opioid Reversal Nitroglycerin 0.4 mg 11/28/22 11:15 Nitroglycerin Sl Tabs 0.4 Mg Tab SUBLINGUAL Q5M PRN Chest Pain Ticagrelor 90 mg 11/28/22 21:00 11/28/22 20:46 Ticagrelor 90 Mg Tab PO Not Given BID RAMOS Intake and Output 11/28/22 11/29/22 11/29/22 22:59 06:59 14:59 Other: # Voids 2 1 Weight 90.718 kg 11/28/22 10:24 11/28/22 10:24
[2022-11-29 16:05] LABS: Chol/HDL Ratio 2.79 Ratio; LDL Cholesterol,Calculated 63.5 mg/dL (0.0-131.0)
[2022-11-29] MEDS: ATORVASTATIN 80 MG TAB PO SCH (20:21)
--- NOTE | 2022-11-29 20:54 | P.PN ---
Subjective Progress Note Date: 11/29/22 This is a pleasant 72-year-old male who presented to the emergency department with exertional chest pain. Patient reports he recently had stents placed in August of this year and was cleared to resume activity. Patient had been vacationing and in [facility] and started experiencing some mild chest burning and squeezing sensation during exertion. Patient will rest and this feeling would subside. Patient reports this feeling is less intense than when he came in and had stents placed. Patient reports he follows with Dr. Jones out of [facility] system with past medical history of hyperlipidemia, heart catheterization with stenting in August 2022, otherwise denies any other medical history. Patient does not smoke and denies alcohol use and denies any illicit drug use. Patient denies having any dizziness or lightheadedness or increased shortness of breath with these symptoms. Patient reports this had been ongoing for a few days prior to coming here and came for further evaluation. Cardiology has been consulted and patient is being admitted under observation for cardiology consult and evaluation. Chest x-ray shows no acute cardiopulmonary disease or process, EKG shows sinus bradycardia with a heart rate of 55 bpm. Labs reviewed show a WBC of 3.7, hemoglobin is stable at 13.9, platelets are 218, INR 0.9, sodium 139 with a potassium of 4.0, BUN is 13 and creatinine is 0.73, calcium 9.2, magnesium 2.0, troponins 2 have been negative and BNP is 197. Will await cardiology evaluation. 11/29/2022 Patient is seen in follow-up this morning was recently evaluated by cardiology recommending cardiac catheterization. Troponins 3 have been negative. TSH along with lipid panel ordered and pending. Patient is maintained on the telemetry monitoring and will continue. Patient is afebrile with no reports of shortness of breath or palpitations. Patient has been up and walking and encouraged increase activity as tolerated. Review of systems: Constitutional: No reports of fatigue, fever, or chills Cardiovascular: No reports of chest pain or palpitations Respiratory: No reports of shortness of breath or cough GI: No reports of nausea, vomiting, or diarrhea : No reports of dysuria or retention Neurovascular: No reports of weakness or numbness All medications have been reviewed PHYSICAL EXAMINATION: GENERAL: The patient is alert and oriented x4, Well developed, well nourished. HEENT: Pupils are round and equally reacting to light. EOMI. no scleral icterus. No conjunctival pallor. Normocephalic, atraumatic. No pharyngeal erythema. No thyromegaly. CARDIOVASCULAR: S1 and S2 muffled PULMONARY: Breath sounds clear to auscultation with no wheezing or rhonchi noted ABDOMEN: soft. Nontender on exam. non-distended, normoactive bowel sounds. No palpable organomegaly. MUSCULOSKELETAL: No joint swelling or deformity. EXTREMITIES: No cyanosis, clubbing, or pedal edema. NEUROLOGICAL: Gross neurological examination did not reveal any focal deficits. SKIN: No rashes. Assessment: Chest pain, ruled out ACS with negative troponins Recent history of stenting of the proximal left circumflex and mid LAD in August 2022 History of hypothyroidism GI prophylaxis DVT prophylaxis Full code Plan: Patient is being admitted for chest pain for cardiology evaluation. Patient recently underwent stenting [address] Valiente. Cardiology evaluated the patient recommending cardiac catheterization which is being tentatively sc heduled for tomorrow due to limited rags laborer time. Patient will be nothing by mouth at midnight All medications reviewed and resumed Troponins 3 are negative. Continue telemetry monitoring TSH and lipid panel ordered and pending Labs reviewed and within normal limits Await cardiac catheterization report. The impression and plan of care has been dictated by nurse branden Banda as directed. Dr. Cassandra MD I have performed a history and examination and MDM of this patient, discussed the same with the dictator, and agree with the dictator's assessment and plan as written ,documented as a scribe. Based on total visit time, I have performed more than 50% of the visit. Any additional findings or plans will be noted. Objective - Vital Signs Vital signs: Vital Signs Temp 97.9 F 11/29/22 07:00 Pulse 55 L 11/29/22 07:00 Resp 16 11/29/22 07:00 BP 128/68 11/29/22 07:00 Pulse Ox 100 11/29/22 07:00 FiO2 Intake & Output 11/28/22 11/29/22 11/29/22 18:59 06:59 18:59 Weight 90.718 kg Other: # Voids 0 1 - Labs CBC & Chem 7: 11/28/22 10:24 11/28/22 10:24 Labs: Abnormal Lab Results - Last 24 Hours (Table) 11/28/22 11/28/22 Range/Units 10:24 10:24 WBC 3.7 L (3.8-10.6) k/uL Lymphocytes # 0.9 L (1.0-4.8) k/uL Glucose 103 H (74-99) mg/dL
[2022-11-29] MEDS: SODIUM CHLORIDE 0.9% 1,000 ML in EMPTY BAG 1 BAG IV SCH (22:51)
[2022-11-30] MEDS ORDERED: ASPIRIN 325 MG TAB PO ONE (05:00)
[2022-11-30] MEDS ORDERED: ATORVASTATIN 80 MG TAB PO ONE (05:00)
[2022-11-30] MEDS: LEVOTHYROXINE 125 MCG TAB PO SCH (05:46)
[2022-11-30] MEDS ORDERED: HEPARIN SODIUM,PORCINE (1 ML) 2,500 UNIT in SODIUM CHLORIDE 0.9% 250 ML IRRIGATION PRN (07:00)
[2022-11-30] MEDS ORDERED: HEPARIN SODIUM,PORCINE 10,000 UNIT in SODIUM CHLORIDE 0.9% 1,000 ML IRRIGATION PRN (07:00)
[2022-11-30] MEDS ORDERED: IV FLUID CONTINUATION 1,000 ML IV ONE (09:03)
[2022-11-30] MEDS ORDERED: MIDAZOLAM 2 MG/2 ML VIAL IVP ONE (09:12)
[2022-11-30] MEDS ORDERED: LIDOCAINE 1% INJ 10MG/ML (5 ML VIAL-PF) SQ ONE (09:13)
[2022-11-30] MEDS ORDERED: VERAPAMIL SYRINGE (5 MG/10 ML) INTRAARTER ONE (09:13)
[2022-11-30] MEDS ORDERED: HEPARIN SODIUM 1,000 UN/ML (10ML VL) IV ONE (09:16)
[2022-11-30] MEDS ORDERED: IOPAMIDOL-370 100ML BTL INJ ONE (09:24)
[2022-11-30] MEDS ORDERED: RX INFO: IV CONTRAST WAS GIVEN 1 EACH MISC MISCELLANE PRN (09:30)
[2022-11-30] MEDS ORDERED: SODIUM CHLORIDE 0.9% 1,000 ML IV SCH (09:30)
--- NOTE | 2022-11-30 09:37 | P.PCN ---
Date of Procedure: 11/30/22 Operative Findings: CARDIAC CATHETERIZATION PERFORMING PHYSICIAN: Jewel Valiente MD, RPVI PROCEDURE PERFORMED: 1. Selective right and left coronary angiogram 2. Left heart catheterization 3. Ultrasound-guided access of the right radial artery INDICATION: Unstable angina. This is a 72-year-old gentleman was known CAD and prior stenting of the LCx and LAD presented to the hospital with classical anginal symptoms started a few days ago. His enzymes are unremarkable. His EKG did not show any significant ST or T-wave abnormalities.. COMPLICATION: None APPROACH: Right radial artery LEVEL OF SEDATION: Moderate with a sedation length of 30 minutes PROCEDURE DESCRIPTION: After obtaining an informed consent, the patient was brought to cardiac shipyard laborer. Local anesthesia was performed using lidocaine subcutaneously. The right radial artery was cannulated using Seldinger technique, the guidewire passed easily, following that we advanced a 5-Scottish sheath dilator assembly, the wire and dilator were removed and sheath was flushed. Following that, 2 mg of verapamil along with 5000 unit heparin were given. Selective right and left coronary angiogram using a 6-Scottish JR4 and JL 3.5 catheters. Following that we did left heart catheterization using 6-Scottish pigtail catheter. The procedure was completed there was no complication. SELECTIVE CORONARY ANGIOGRAM: The right coronary artery: Large caliber vessel and a dominant vessel. The PLV branch of the RCA has mild disease appeared to be in the range of 40-50%. Left main: Appears to be angiographically normal. Bifurcates into an LCx and LAD The left circumflex: Large caliber vessel nondominant vessel. The LCx in the midportion is a stented and the stent is patent. Proximally has mild disease only. The circumflex/OM stent is patent and the AV groove circumflex is pinched with disease appears to be in the range of 50% The left anterior descending artery: The proximal LAD appeared to have mild to moderate disease only. The stent in the mid LAD is patent. The distal LAD appears to have also mild to moderate disease with no high-grade stenosis. The LAD across the stent gives rises into a diagonal branch which has a critical lesion but it could be also vasospasm lesion because that lesion was not exist with the last angiogram. HEMODYNAMICS: The LVEDP was 8 mmHg was no significant gradient across aortic valve CONCLUSION: 1. Patent stent in the mid left circumflex/OM 2. Patent stent in the mid LAD. Mild to moderate disease involving the LAD proximal and distal to the stented segment. Critical disease involving a diagonal branch across the stented segment. The disease was not exist on prior heart catheterization from August 2022. It could be related to coronary vasospasm. I would consider conservative medical approach at this point POSTPROCEDURE MANAGEMENT: Medical treatment using oral nitrate
[2022-11-30] MEDS: ASPIRIN 81 MG PO SCH (11:02)
[2022-11-30] MEDS: TICAGRELOR 90 MG TAB PO SCH ×2 (11:05→20:57)
[2022-11-30] MEDS: ISOSORBIDE MONONITRATE ER 30 MG TAB.ER.24H PO SCH (11:05)
[2022-11-30] MEDS: SODIUM CHLORIDE 0.9% 1,000 ML in EMPTY BAG 1 BAG IV SCH (11:07)
[2022-11-30] MEDS: ATORVASTATIN 80 MG TAB PO SCH (20:58)
[2022-11-30 21:48] VITALS: RESP 15
[2022-12-01] MEDS: SODIUM CHLORIDE 0.9% 1,000 ML in EMPTY BAG 1 BAG IV SCH ×2 (01:17→08:00)
[2022-12-01] MEDS: LEVOTHYROXINE 125 MCG TAB PO SCH (06:35)
--- NOTE | 2022-12-01 07:49 | P.PN ---
Subjective Progress Note Date: 11/30/22 This is a pleasant 72-year-old male who presented to the emergency department with exertional chest pain. Patient reports he recently had stents placed in August of this year and was cleared to resume activity. Patient had been vacationing and in [facility] and started experiencing some mild chest burning and squeezing sensation during exertion. Patient will rest and this feeling would subside. Patient reports this feeling is less intense than when he came in and had stents placed. Patient reports he follows with Dr. Jones out of [facility] system with past medical history of hyperlipidemia, heart catheterization with stenting in August 2022, otherwise denies any other medical history. Patient does not smoke and denies alcohol use and denies any illicit drug use. Patient denies having any dizziness or lightheadedness or increased shortness of breath with these symptoms. Patient reports this had been ongoing for a few days prior to coming here and came for further evaluation. Cardiology has been consulted and patient is being admitted under observation for cardiology consult and evaluation. Chest x-ray shows no acute cardiopulmonary disease or process, EKG shows sinus bradycardia with a heart rate of 55 bpm. Labs reviewed show a WBC of 3.7, hemoglobin is stable at 13.9, platelets are 218, INR 0.9, sodium 139 with a potassium of 4.0, BUN is 13 and creatinine is 0.73, calcium 9.2, magnesium 2.0, troponins 2 have been negative and BNP is 197. Will await cardiology evaluation. 11/29/2022 Patient is seen in follow-up this morning was recently evaluated by cardiology recommending cardiac catheterization. Troponins 3 have been negative. TSH along with lipid panel ordered and pending. Patient is maintained on the telemetry monitoring and will continue. Patient is afebrile with no reports of shortness of breath or palpitations. Patient has been up and walking and encouraged increase activity as tolerated. 11/30/2022 Patient is seen and evaluated in follow-up today status post cardiac catheterization which revealed patent stents and some mild disease with cardiology following recommending maximizing medical management. Imdur being added. Patient is afebrile with no reports of chest pain or shortness of breath. Patient appears somewhat lethargic at times and will monitor overnight with discharge planning in 24 hours. Patient drove himself here and has his vehicle here and does not want to be fit and has no other family nearby that is able to pick him up. Will continue on telemetry monitoring. Review of systems: Constitutional: No reports of fatigue, fever, or chills Cardiovascular: No reports of chest pain or palpitations Respiratory: No reports of shortness of breath or cough GI: No reports of nausea, vomiting, or diarrhea : No reports of dysuria or retention Neurovascular: No reports of weakness or numbness All medications have been reviewed PHYSICAL EXAMINATION: GENERAL: The patient is alert and oriented x4, Well developed, well nourished. HEENT: Pupils are round and equally reacting to light. EOMI. no scleral icterus. No conjunctival pallor. Normocephalic, atraumatic. No pharyngeal erythema. No thyromegaly. CARDIOVASCULAR: S1 and S2 muffled PULMONARY: Breath sounds clear to auscultation with no wheezing or rhonchi noted ABDOMEN: soft. Nontender on exam. non-distended, normoactive bowel sounds. No palpable organomegaly. MUSCULOSKELETAL: No joint swelling or deformity. EXTREMITIES: No cyanosis, clubbing, or pedal edema. NEUROLOGICAL: Gross neurological examination did not reveal any focal deficits. SKIN: No rashes. Assessment: Chest pain, ruled out ACS with negative troponins, cardiac catheterization performed today 11/30/2022 with no further stenting performed Recent history of stenting of the proximal left circumflex and mid LAD in August 2022 History of hypothyroidism GI prophylaxis DVT prophylaxis Full code Plan: Patient was admitted for chest pain for cardiology evaluation. Patient recently underwent stenting [address] in [address] Valiente. Cardiology evaluated the patient underwent cardiac catheterization today revealing patent stents all of their is some mild disease noted that was not present on previous cardiac catheterization per cardiology note and recommending maximizing medical management and imdur being added. Patient drove himself here with his own vehicle and has no family close by and will be able to pick him up and patient had sedatives for cardiac cath and will monitor overnight as patient is lethargic and feel unsafe to drive. Patient will be discharged in a.m. patient has been cleared by cardiology for discharge with outpatient follow-up. All medications reviewed and resumed Continue telemetry monitoring Patient will discharge in 24 hours. The impression and plan of care has been dictated by Annabelle Cedeño, nurse practitioner as directed. Dr. Jennie MD I have performed a history and examination and MDM of this patient, discussed the same with the dictator, and agree with the dictator's assessment and plan as written ,documented as a scribe. Based on total visit time, I have performed more than 50% of the visit. Any additional findings or plans will be noted. Objective - Vital Signs Vital signs: Vital Signs Temp 98.0 F 11/30/22 07:00 Pulse 55 L 11/30/22 07:00 Resp 16 11/30/22 07:00 BP 116/73 11/30/22 07:00 Pulse Ox 99 11/30/22 07:00 FiO2 Intake & Output 11/29/22 11/30/22 11/30/22 18:59 06:59 18:59 Intake Total 100 Balance 100 Intake: IV 100 Other: # Voids 1 1 # Bowel Movements 1 - Labs CBC & Chem 7: 11/28/22 10:24 11/28/22 10:24 Labs: Abnormal Lab Results - Last 24 Hours (Table) 11/29/22 Range/Units 09:37 TSH 0.128 L (0.350-5.500) UIU/ML Free (T4) Reflex I 2.43 H (0.80-1.80) ng/dL
[2022-12-01] MEDS: ISOSORBIDE MONONITRATE ER 30 MG TAB.ER.24H PO SCH (08:00)
[2022-12-01] MEDS: ASPIRIN 81 MG PO SCH (08:00)
[2022-12-01] MEDS: TICAGRELOR 90 MG TAB PO SCH (08:00)
[2022-12-01 14:01] VITALS: BP 98/58; PULSE 58; TEMP 98.2
== END 2022-12-01 14:58 | disposition home or self-care (01) ==
LOC: EC 09:57 → 6NMEDSUR 11:13
PROVIDERS: ADMIT Hospitalist; ATTEND Hospitalist
DX: R07.89 Other chest pain (principal); E78.5 Hyperlipidemia, unspecified; R00.1 Bradycardia, unspecified; E03.9 Hypothyroidism, unspecified; I25.2 Old myocardial infarction; I10 Essential (primary) hypertension; I25.10 Atherosclerotic heart disease of native coronary artery without angina pectoris; I70.0 Atherosclerosis of aorta; Z95.5 Presence of coronary angioplasty implant and graft; Z79.890 Hormone replacement therapy; Z79.82 Long term (current) use of aspirin; Z79.02 Long term (current) use of antithrombotics/antiplatelets; Z79.899 Other long term (current) drug therapy; Z81.8 Family history of other mental and behavioral disorders; R53.83 Other fatigue; Z82.49 Family history of ischemic heart disease and other diseases of the circulatory system
CPT/HCPCS: 99285; 36415; 93005; 93458; 76937; 84439; 83880; 80061; 80053; 84443; 83735; 84484; 85025; 85610; 85730; 83036; 71046; G0378 ×4; C1769; C1894; J2250; J2001; J1644; Q9967

== ENCOUNTER 2023-03-17 18:32 | Emergency (ER) | payer MEDICARE ==
[2023-03-17] MEDS ORDERED: SODIUM CHLORIDE 0.9% 1,000 ML IV STA (18:51)
[2023-03-17 19:20] LABS: Basophils % (A) 1 %; Eosinophils # (A) 0.2 k/uL (0-0.7); Eosinophils % (A) 4 %; HCT 40.6 % (39.0-53.0); HGB 13.6 gm/dL (13.0-17.5); Lymphocytes # (A) 1.2 k/uL (1.0-4.8); Lymphocytes % (A) 24 %; MCH 31.1 pg (25.0-35.0); MCHC 33.6 g/dL (31.0-37.0); MCV 92.8 fL (80.0-100.0); Mean Platelet Volume 7.1; Monocytes # (A) 0.3 k/uL (0-1.0); Monocytes % (A) 7 %; Neutrophils # (A) 3.1 k/uL (1.3-7.7); Neutrophils % (A) 63 %; Platelet Count 215 k/uL (150-450); RBC 4.38 m/uL (4.30-5.90); RDW 13.6 % (11.5-15.5); WBC 4.9 k/uL (3.8-10.6)
--- NOTE | 2023-03-17 19:24 | ED ---
Dizziness HPI - General Chief Complaint: Dizziness Stated Complaint: Dizziness Time Seen by Provider: 03/17/23 18:37 Source: patient, RN notes reviewed Mode of arrival: ambulatory Limitations: no limitations - History of Present Illness Initial Comments: 72-year-old male presents emergency Department with chief complaint of dizziness. Patient states he had severe dizziness yesterday states that he associated nausea vomiting states that down the ground and crawl to the felt like is in a pass out or fall over. Patient states he did feel better to drink some water and states he woke up this morning with minimal symptoms. He denies any complaints of headache, focal weakness, chest pain shortness breath. He is concerned as he had stents placed in August and also states that his son has had a CVA. - Related Data Home Medications Medication Instructions Recorded Confirmed Levothyroxine Sodium [Levoxyl] 125 mcg PO DAILY 09/25/22 11/28/22 Previous Rx's Medication Instructions Recorded Aspirin 81 mg PO DAILY #90 tab 09/27/22 Atorvastatin [Lipitor] 80 mg PO HS #90 tab 09/27/22 Nitroglycerin Sl Tabs [Nitrostat] 0.4 mg SUBLINGUAL Q5M PRN #100 tab 09/27/22 Ticagrelor [Brilinta] 90 mg PO BID #180 tab 09/27/22 Acetaminophen Tab [Tylenol] 650 mg PO Q6HR PRN tab 11/30/22 Isosorbide Mononitrate ER [Imdur] 30 mg PO DAILY #90 tab 11/30/22 Allergies Allergy/AdvReac Type Severity Reaction Status Date / Time No Known Allergies Allergy Verified 03/17/23 18:36 Review of Systems ROS Statement: Those systems with pertinent positive or pertinent negative responses have been documented in the HPI. ROS Other: All systems not noted in ROS Statement are negative. Past Medical History Past Medical History: Hyperlipidemia Additional Past Medical History / Comment(s): 2 stents placed August 2022. History of Any Multi-Drug Resistant Organisms: None Reported Past Surgical History: No Surgical Hx Reported Past Anesthesia/Blood Transfusion Reactions: No Reported Reaction Date of Last Stent Placement:: august 2022 Past Psychological History: No Psychological Hx Reported Smoking Status: Never smoker Past Alcohol Use History: None Reported Past Drug Use History: None Reported - Past Family History Father Family Medical History: Congestive Heart Failure (CHF) Mother Family Medical History: Dementia General Exam Limitations: no limitations General appearance: alert, in no apparent distress Head exam: Present: atraumatic, normocephalic, normal inspection Eye exam: Present: normal appearance, PERRL, EOMI. Absent: scleral icterus, conjunctival injection, periorbital swelling ENT exam: Present: normal exam, normal oropharynx, mucous membranes moist, TM's normal bilaterally, normal external ear exam Neck exam: Present: normal inspection, full ROM. Absent: tenderness, meningismus, lymphadenopathy Respiratory exam: Present: normal lung sounds bilaterally. Absent: respiratory distress, wheezes, rales, rhonchi, stridor Cardiovascular Exam: Present: regular rate, normal rhythm, normal heart sounds. Absent: systolic murmur, diastolic murmur, rubs, gallop, clicks Extremities exam: Present: other (All extremities full range of motion, strength 5/5) Neurological exam: Present: alert, oriented X3, CN II-XII intact, normal gait, reflexes normal, other (Finger to nose intact bilaterally). Absent: motor sensory deficit Course Vital Signs 03/17/23 03/17/23 03/17/23 18:34 19:15 20:00 Temperature 97.8 F Pulse Rate 69 50 L 51 L Respiratory 18 18 18 Rate Blood Pressure 144/82 128/78 137/71 O2 Sat by Pulse 97 99 100 Oximetry EKG Findings - EKG Comments: EKG Findings:: EKG performed at 18:47 sinus rhythm with rate of 63 [place] 180 QRS 116 QT/QTC 418/424 - EKG Results: EKG: interpreted by ESTELA Medical Decision Making - Medical Decision Making Was pt. sent in by a medical professional or institution (, PA, INFIRMARY ATTENDANT, urgent care, hospital, or skilled nursing...) When possible be specific @ -No Did you speak to anyone other than the patient for history (EMS, parent, family, police, friend...)? What history was obtained from this source @ -No Did you review nursing and triage notes (agree or disagree)? Why? @ -I reviewed and agree with nursing and triage notes Were old charts reviewed (outside hosp., previous admission, EMS record, old EKG, old radiological studies, urgent care reports/EKG's, skilled nursing records)? Report findings @ -No old charts were reviewed Differential Diagnosis (chest pain, altered mental status, abdominal pain women, abdominal pain men, vaginal bleeding, weakness, fever, dyspnea, syncope, headache, dizziness, GI bleed, back pain, seizure, CVA, palpatations, mental health, musculoskeletal)? @ -[Differential Dizziness: Benign paroxysmal positional Vertigo, Menieres disease, otitis media, acoustic neuroma, vertebrobasilar insufficiency, cerebellar stroke, encephalitis, hypovolemic, arrhythmia, coronary artery syndrome, anemia, this is not meant to be an all-inclusive list EKG interpreted by me (3pts min.). @ -As above X-rays interpreted by me (1pt min.). @ -None done CT interpreted by me (1pt min.). @ -CT brain shows no acute intracranial hemorrhage or mass effect or acute abnormality U/S interpreted by me (1pt. min.). @ -None done What testing was considered but not performed or refused? (CT, X-rays, U/S, labs)? Why? @ -None What meds were considered but not given or refused? Why? @ -None Did you discuss the management of the patient with other professionals (professionals i.e. , PA, INFIRMARY ATTENDANT, lab, RT, psych nurse, health and social care teacher, grout machine operator, teacher, commissary officer, employment case manager)? Give summary @ -No Was smoking cessation discussed for >3mins.? @ -No Was critical care preformed (if so, how long)? @ -No Were there social determinants of health that impacted care today? How? (Homelessness, low income, unemployed, alcoholism, drug addiction, transportation, low edu. Level, literacy, decrease access to med. care, [place] [facility], rehab)? @ -No Was there de-escalation of care discussed even if they declined (Discuss DNR or withdrawal of care, Hospice)? DNR status @ -No What co-morbidities impacted this encounter? (DM, HTN, Smoking, COPD, CAD, Cancer, CVA, ARF, Chemo, Hep., AIDS, mental health diagnosis, sleep apnea, morbid obesity)? @ -None Was patient admitted / discharged? Hospital course, mention meds given and route, prescriptions, significant lab abnormalities, going to OR and other pertinent info. @ -[Discharge patient remains asymptomatic. Patient therefore cup regarding his symptoms that happened yesterday. They're negative patient states he feels comfortable with discharge he is advised to return immediately for any changing symptoms or new symptoms. Undiagnosed new problem with uncertain prognosis? @ -No Drug Therapy requiring intensive monitoring for toxicity (Heparin, Nitro, Insulin, Cardizem)? @ -No Were any procedures done? @ -No Diagnosis/symptom? @ -Dizziness Acute, or Chronic, or Acute on Chronic? @ -Acute Uncomplicated (without systemic symptoms) or Complicated (systemic symptoms)? @ -Uncomplicated Side effects of treatment? @ -No Exacerbation, Progression, or Severe Exacerbation? @ -No Poses a threat to life or bodily function? How? (Chest pain, [place], [place], pneumonia, PE, COPD, DKA, ARF, appy, cholecystitis, CVA, Diverticulitis, Homicidal, Suic idal, threat to staff... and all critical care pts) @ -No - Lab Data Result diagrams: 03/17/23 19:13 03/17/23 19:13 Lab Results 03/17/23 03/17/23 03/17/23 Range/Units 19:13 19:13 19:13 WBC 4.9 (3.8-10.6) k/uL RBC 4.38 (4.30-5.90) m/uL Hgb 13.6 (13.0-17.5) gm/dL Hct 40.6 (39.0-53.0) % MCV 92.8 (80.0-100.0) fL MCH 31.1 (25.0-35.0) pg MCHC 33.6 (31.0-37.0) g/dL RDW 13.6 (11.5-15.5) % Plt Count 215 (150-450) k/uL MPV 7.1 Neutrophils % 63 % Lymphocytes % 24 % Monocytes % 7 % Eosinophils % 4 % Basophils % 1 % Neutrophils # 3.1 (1.3-7.7) k/uL Lymphocytes # 1.2 (1.0-4.8) k/uL Monocytes # 0.3 (0-1.0) k/uL Eosinophils # 0.2 (0-0.7) k/uL Basophils # 0.0 (0-0.2) k/uL Sodium 141 (137-145) mmol/L Potassium 4.2 (3.5-5.1) mmol/L Chloride 104 (98-107) mmol/L Carbon Dioxide 26 (22-30) mmol/L Anion Gap 11 mmol/L BUN 16 (9-20) mg/dL Creatinine 0.78 (0.66-1.25) mg/dL Est GFR (CKD-EPI)AfAm >90 (>60 ml/min/1.73 sqM) Est GFR (CKD-EPI)NonAf >90 (>60 ml/min/1.73 sqM) Glucose 97 (74-99) mg/dL Calcium 9.4 (8.4-10.2) mg/dL Magnesium 2.3 (1.6-2.3) mg/dL Total Bilirubin 0.5 (0.2-1.3) mg/dL AST 31 (17-59) U/L ALT 31 (4-49) U/L Alkaline Phosphatase 72 (38-126) U/L Troponin I <0.012 (0.000-0.034) ng/mL Total Protein 7.3 (6.3-8.2) g/dL Albumin 4.3 (3.5-5.0) g/dL Disposition Clinical Impression: Dizziness Disposition: HOME SELF-CARE Condition: Stable Instructions (If sedation given, give patient instructions): Dizziness (ED) Additional Instructions: Please return to the Emergency Department if symptoms worsen or any other concerns. Is patient prescribed a controlled substance at d/c from ED?: No Referrals: Nonstaff,Physician [Primary Care Provider] - 1-2 days Time of Disposition: 20:37
[2023-03-17 19:32] LABS: ALT 31 U/L (4-49); AST 31 U/L (17-59); African American GFR (CKD) >90 (>60 ml/min/1.73 sqM); Albumin 4.3 g/dL (3.5-5.0); Alkaline Phosphatase 72 U/L (38-126); Anion Gap 11 mmol/L; Blood Urea Nitrogen 16 mg/dL (9-20); Calcium 9.4 mg/dL (8.4-10.2); Carbon Dioxide 26 mmol/L (22-30); Chloride 104 mmol/L (98-107); Glucose 97 mg/dL (74-99); Magnesium 2.3 mg/dL (1.6-2.3); Non-African American GFR(CKD) >90 (>60 ml/min/1.73 sqM); Potassium 4.2 mmol/L (3.5-5.1); Sodium 141 mmol/L (137-145); Total Bilirubin 0.5 mg/dL (0.2-1.3); Total Protein 7.3 g/dL (6.3-8.2)
--- NOTE | 2023-03-17 20:35 | CT ---
EXAMINATION TYPE: CT brain wo con CT DLP: 1232.1 mGycm, Automated exposure control for dose reduction was used. DATE OF EXAM: 03/17/2023 7:39 PM COMPARISON: None. CLINICAL INDICATION:Male, 72 years old with history of dizziness, Dizziness TECHNIQUE: Brain: Axial CT images of the brain were obtained with coronal and sagittal reformats created and rev iewed. Contrast used: None. Oral contrast used: None. FINDINGS: Extra-axial spaces: No abnormal extra-axial fluid collections. Ventricular system: Appear dilated in proportion to the degree of cerebral atrophy. Cerebral parenchyma: No increased attenuation to suggest acute intraparenchymal hemorrhage. The gra y-white matter interface appears maintained. Mild generalized brain atrophy. Scattered hypoattenuat ing areas are seen within the cerebral white matter, nonspecific but most often seen with chronic allie rovascular ischemic changes; mild in degree. Cerebellum: No acute abnormality. Mass effect: No evidence of mass effect or midline shift. Intracranial vasculature: Atherosclerotic calcifications of the larger arteries near the skull base. Soft tissues: Normal. Visualized orbits: Orbital contents appear grossly intact. Calvarium/osseous structures: No evidence of calvarial fracture. Paranasal sinuses and mastoid air cells: Clear MRI is more sensitive for detecting acute processes such as infarct, and may be considered if clinica lly warranted. IMPRESSION: 1. Atrophy and chronic microvascular ischemic white matter changes. 2. No CT evidence of an acute intracranial abnormality.
[2023-03-17 20:37] VITALS: PULSE 51
[2023-03-17 21:00] VITALS: BP 135/77; RESP 16; TEMP 97.6
== END 2023-03-17 20:51 | disposition home or self-care (01) ==
LOC: EC 18:32
DX: R42 Dizziness and giddiness (principal)
CPT/HCPCS: 36415; 70450; 80053; 83735; 84484; 85025; 93005; 96360; 99284

== ENCOUNTER 2023-05-30 14:41 | Emergency (ER) | payer MEDICARE ==
--- NOTE | 2023-05-30 15:08 | ED ---
Extremity Problem HPI - General Source: patient, RN notes reviewed Mode of arrival: ambulatory Limitations: no limitations <Anna Elias - Last Filed: 05/30/23 15:07> <Dorian Zurita - Last Filed: 06/05/23 09:50> - General Chief complaint: Extremity Problem,Nontraumatic Stated complaint: cant raise left arm Time Seen by Provider: 05/30/23 15:07 - History of Present Illness Initial comments: Patient is a 72-year-old male presented to ER with a chief complaint of left arm limited range of motion. Patient states around 1230 this afternoon he noticed he had difficulty moving his left arm. Patient is worried he is having a stroke. Denies any difficulty walking or slurred speech. (Anna Elias) - Related Data Home Medications Medication Instructions Recorded Confirmed Levothyroxine Sodium [Levoxyl] 125 mcg PO DAILY 09/25/22 11/28/22 Previous Rx's Medication Instructions Recorded Aspirin 81 mg PO DAILY #90 tab 09/27/22 Atorvastatin [Lipitor] 80 mg PO HS #90 tab 09/27/22 Nitroglycerin Sl Tabs [Nitrostat] 0.4 mg SUBLINGUAL Q5M PRN #100 tab 09/27/22 Ticagrelor [Brilinta] 90 mg PO BID #180 tab 09/27/22 Acetaminophen Tab [Tylenol] 650 mg PO Q6HR PRN tab 11/30/22 Isosorbide Mononitrate ER [Imdur] 30 mg PO DAILY #90 tab 11/30/22 predniSONE [Deltasone] 20 mg PO BID #8 tab 05/30/23 Allergies Allergy/AdvReac Type Severity Reaction Status Date / Time No Known Allergies Allergy Verified 03/17/23 18:36 Review of Systems ROS Other: All systems not noted in ROS Statement are negative. <Anna Elias - Last Filed: 05/30/23 15:07> ROS Other: All systems not noted in ROS Statement are negative. <Dorian Zurita - Last Filed: 06/05/23 09:50> ROS Statement: Those systems with pertinent positive or pertinent negative responses have been documented in the HPI. Past Medical History Past Medical History: Coronary Artery Disease (CAD), Hyperlipidemia Additional Past Medical History / Comment(s): 2 stents placed August 2022. vertigo History of Any Multi-Drug Resistant Organisms: None Reported Past Surgical History: Heart Catheterization With Stent Past Anesthesia/Blood Transfusion Reactions: No Reported Reaction Date of Last Stent Placement:: august 2022 Past Psychological History: No Psychological Hx Reported Smoking Status: Never smoker Past Alcohol Use History: None Reported Past Drug Use History: None Reported - Past Family History Father Family Medical History: Congestive Heart Failure (CHF) Mother Family Medical History: Dementia <Anna Elias - Last Filed: 05/30/23 15:07> General Exam Limitations: no limitations <Anna Elias - Last Filed: 05/30/23 15:07> - General Exam Comments Initial Comments: Visual Physical Exam Vital signs reviewed General: Well-appearing, nontoxic, no acute distress. Head: Normocephalic, atraumatic Eyes: PERRLA, EOMI ENT: Airway patent Chest: Nonlabored breathing Skin: No visual rash, normal skin tone Neuro: Alert and oriented 3 Musculoskeletal: No gross abnormalities (Anna Elias) Course Vital Signs 05/30/23 05/30/23 15:02 17:40 Temperature 98.6 F 98.1 F Pulse Rate 63 68 Respiratory 16 18 Rate Blood Pressure 143/83 136/80 O2 Sat by Pulse 98 99 Oximetry Medical Decision Making <Anna Elias - Last Filed: 05/30/23 15:07> - Medical Decision Making I performed the quick note portion of this chart. Electronically signed by Anna Elias PA-C (Anna Elias) Disposition <Anna Elias - Last Filed: 05/30/23 15:07> Is patient prescribed a controlled substance at d/c from ED?: No <Dorian Zurita - Last Filed: 06/05/23 09:50> Clinical Impression: Weakness of left shoulder Disposition: HOME SELF-CARE Condition: Good Instructions (If sedation given, give patient instructions): Shoulder Impingement Syndrome (ED) Prescriptions: predniSONE [Deltasone] 20 mg PO BID #8 tab Referrals: Nonstaff,Physician [Primary Care Provider] - 1-2 days Rudolph Qureshi MD [STAFF PHYSICIAN] - 1-2 days Jake Esteban MD [REFERRING] - 1-2 days
--- NOTE | 2023-05-30 15:51 | XR ---
EXAMINATION TYPE: XR shoulder complete 3 views LT DATE OF EXAM: 05/30/2023 Comparison: None Clinical History: 72-year-old male pain, limited ROM Findings: Mild degenerative joint space narrowing and capsular hypertrophy at the AC joint. Subacromial space i s no fracture, subluxation, dislocation is seen. Impression: Mild degenerative change at the AC joint. No acute osseous abnormality seen.
--- NOTE | 2023-05-30 16:11 | CT ---
EXAMINATION TYPE: CT brain naa wo con DATE OF EXAM: 05/30/2023 COMPARISON: 03/17/2023 HISTORY: LT shoulder weakness, cannot move shoulder above head when standing up. CT DLP: 1620.8 mGycm, Automated exposure control for dose reduction was used. CONTRAST: Patient injected with 0 mL of Isovue 300. CT of the brain is performed utilizing 3 mm thick sections through the posterior fossa and 3 mm thick sections through the remaining calvarium. Study is performed within 24 hours of arrival to the hospital. No abnormal hyperdensity is present to suggest an acute intracranial hemorrhage. No mass lesion is evident. No acute infarcts are evident. Ventricles and sulci are appropriate for the patient age. Paranasal sinuses and mastoid air cells within the [id number] are clear. IMPRESSIONS: 1. No acute intracranial process. Follow-up MRI can be performed as clinically indicated. CT cervical spine. COMPARISON: None CT of the cervical spine is performed in the axial plane at 2 mm thick sections. Reconstructed image s in the coronal, and sagittal plane are reviewed on the computer. No acute fractures are evident. Vertebral body alignment is normal. Degenerative disc changes and loss of disc height are noted at C5-6 C6-7. Vertebral body heights are preserved. No spinal canal stenosis is evident. Uncovertebral joint hypertrophy and facet are contributing to right C3-4 foraminal stenosis left fora antony stenosis present C4-5. Bilateral foraminal stenosis present C5-6 with milder foraminal narrowin g C6-7 bilaterally. IMPRESSION: 1. Degenerative disc changes mid cervical spine. 2. Foraminal narrowing due to uncovertebral joint atrophy appears greatest bilaterally at C5-6.
[2023-05-30] MEDS: predniSONE 20 MG TAB PO STA (16:49)
[2023-05-30 18:02] VITALS: BP 136/80; PULSE 68; RESP 18; TEMP 98.1
== END 2023-05-30 17:43 | disposition home or self-care (01) ==
LOC: EC 14:41
DX: M62.512 Muscle wasting and atrophy, not elsewhere classified, left shoulder (principal); I25.10 Atherosclerotic heart disease of native coronary artery without angina pectoris
CPT/HCPCS: 70450; 72125; 99284

== ENCOUNTER → 2023-11-15 | Outpatient (CLI) | payer MEDICARE | END | disposition home or self-care (01) | LOC: LABWHC1 11:54 | PROVIDERS: ATTEND Internal Medicine Interventional Cardiology | DX: E78.2 Mixed hyperlipidemia (principal) | CPT/HCPCS: 36415; 80061; 84450; 84460 ==

== ENCOUNTER → 2024-06-25 | Outpatient (CLI) | payer MEDICARE ==
[2024-06-25 19:10] LABS: ALT 38 U/L (10-49); AST 44 U/L (14-35); Chol/HDL Ratio 2.72 Ratio; LDL Cholesterol,Calculated 87.2 mg/dL (0.0-131.0)
== END | disposition home or self-care (01) ==
LOC: LABWHC1 14:24
PROVIDERS: ATTEND Internal Medicine Interventional Cardiology
DX: E78.2 Mixed hyperlipidemia (principal)
CPT/HCPCS: 36415; 80061; 84450; 84460

== ENCOUNTER 2024-09-23 23:20 | Inpatient (IN) | payer MEDICARE ==
[2024-09-23 23:40] LABS: Basophils # (A) 0.04 10*3/uL (0.00-0.10); Basophils % (A) 0.5 %; Eosinophils % (A) 1.2 %; HCT 38.9 % (39.6-50.0); HGB 13.5 g/dL (13.0-17.0); Lymphocytes # (A) 1.06 10*3/uL (0.90-5.00); Lymphocytes % (A) 12.5 %; MCH 31.8 pg (27.0-32.0); MCHC 34.7 g/dL (32.0-37.0); MCV 91.5 fL (80.0-97.0); Mean Platelet Volume 8.9 fL (9.5-12.2); Monocytes # (A) 0.69 10*3/uL (0.20-1.00); Monocytes % (A) 8.1 %; Neutrophils % (A) 77.5 %; Platelet Count 190 10*3/uL (140-440); RBC 4.25 10*6/uL (4.40-5.60); WBC 8.51 10*3/uL (4.50-10.00)
--- NOTE | 2024-09-23 23:55 | ED ---
Chest Pain HPI - General Chief Complaint: Chest Pain Stated Complaint: Chest pressure Time Seen by Provider: 09/23/24 23:54 Source: patient, RN notes reviewed, old records reviewed Mode of arrival: ambulatory Limitations: no limitations - History of Present Illness Initial Comments: This is a 74 male to the ER for evaluation of chest pain severe chest pain here in the emergency department positive chest pain and shortness of breath prior to arrival. Patient has history of CAD history of 2 stents MD Complaint: chest pain -: minutes(s) Onset: during rest, during exertion Pain Location: substernal, left chest Pain Radiation: LUE Severity: mild Severity scale (1-10): 3 Quality: tightness Consistency: intermittent, now resolved Improves With: nothing Worsens With: nothing Anginal Symptoms: dyspnea Other Symptoms: palpitations Treatments Prior to Arrival: none - Related Data Home Medications Medication Instructions Recorded Confirmed Levothyroxine Sodium [Levoxyl] 125 mcg PO AC-BRKFST 09/25/22 09/24/24 Aspirin 81 mg PO HS 09/24/24 09/24/24 Previous Rx's Medication Instructions Recorded Atorvastatin [Lipitor] 80 mg PO HS #90 tab 09/27/22 Ticagrelor [Brilinta] 90 mg PO BID 30 Days #60 tab 09/26/24 Allergies Allergy/AdvReac Type Severity Reaction Status Date / Time No Known Allergies Allergy Verified 09/24/24 10:55 Review of Systems ROS Statement: Those systems with pertinent positive or pertinent negative responses have been documented in the HPI. ROS Other: All systems not noted in ROS Statement are negative. EKG Findings - EKG Comments: EKG Findings:: EKG sinus 59 [place] 207 QRS 89 QTc 412, no ST elevation - EKG Results: EKG: interpreted by ERMD Past Medical History Past Medical History: Coronary Artery Disease (CAD), Hyperlipidemia Additional Past Medical History / Comment(s): 2 stents placed August 2022. vertigo History of Any Multi-Drug Resistant Organisms: None Reported Past Surgical History: Heart Catheterization With Stent Past Anesthesia/Blood Transfusion Reactions: No Reported Reaction Date of Last Stent Placement:: august 2022 Past Psychological History: No Psychological Hx Reported Smoking Status: Never smoker Past Alcohol Use History: None Reported Past Drug Use History: None Reported - Past Family History Father Family Medical History: Congestive Heart Failure (CHF) Mother Family Medical History: Dementia General Exam Limitations: no limitations General appearance: alert, in no apparent distress Head exam: Present: atraumatic, normocephalic, normal inspection Eye exam: Present: normal appearance, PERRL, EOMI. Absent: scleral icterus, conjunctival injection, periorbital swelling ENT exam: Present: normal exam, mucous membranes moist Neck exam: Present: normal inspection. Absent: tenderness, meningismus, lymphadenopathy Respiratory exam: Present: normal lung sounds bilaterally. Absent: respiratory distress, wheezes, rales, rhonchi, stridor Cardiovascular Exam: Present: regular rate, normal rhythm, normal heart sounds. Absent: systolic murmur, diastolic murmur, rubs, gallop, clicks GI/Abdominal exam: Present: soft, normal bowel sounds. Absent: distended, tenderness, guarding, rebound, rigid Extremities exam: Present: normal inspection, full ROM, normal capillary refill. Absent: tenderness, pedal edema, joint swelling, calf tenderness Back exam: Present: normal inspection Neurological exam: Present: alert, oriented X3, CN II-XII intact Psychiatric exam: Present: normal affect, normal mood Skin exam: Present: warm, dry, intact, normal color. Absent: rash Course Vital Signs 09/23/24 09/24/24 09/24/24 23:22 01:50 02:48 Temperature 98.1 F Pulse Rate 82 55 L 57 L Respiratory 18 18 16 Rate Blood Pressure 138/71 138/80 134/81 O2 Sat by Pulse 97 98 98 Oximetry 09/24/24 09/24/24 09/24/24 03:37 06:00 09:08 Temperature Pulse Rate 59 L 64 55 L Respiratory 17 17 15 Rate Blood Pressure 129/68 110/64 122/70 O2 Sat by Pulse 97 98 97 Oximetry 09/24/24 09/24/24 09/24/24 11:10 14:13 16:08 Temperature Pulse Rate 53 L 55 L 57 L Respiratory 17 18 Rate Blood Pressure 122/72 127/73 124/70 O2 Sat by Pulse 98 97 97 Oximetry 09/24/24 09/24/24 09/24/24 18:22 20:16 22:09 Temperature Pulse Rate 58 L 54 L 55 L Respiratory 18 18 18 Rate Blood Pressure 132/72 132/72 132/72 O2 Sat by Pulse 97 98 98 Oximetry - Reevaluation(s) Reevaluation #1: 09/24/24 03:29 Medical records reviewed Reevaluation #2: 09/24/24 03:29 Patient symptoms are improving 09/24/24 03:29 Patient symptoms resolved Reevaluation #3: 09/24/24 03:29 Patient informed of results and questions answered Reevaluation #4: Was pt. sent in by a medical professional or institution (, PA, TIMBER SELECTOR, urgent care, hospital, or penitentiary...) When possible be specific @ -no Did you speak to anyone other than the patient for history (EMS, parent, family, police, friend...)? What history was obtained from this source @ -no Did you review nursing and triage notes (agree or disagree)? Why? @ -agree Are old charts reviewed (outside hosp., previous admission, EMS record, old EKG, old radiological studies, urgent care reports/EKG's, penitentiary records)? Report findings @ -yes Differential Diagnosis (chest pain, altered mental status, abdominal pain women, abdominal pain men, vaginal bleeding, weakness, fever, dyspnea, syncope, headache, dizziness, GI bleed, back pain, seizure, CVA, palpatations, mental health, musculoskeletal)? @ -prior EKG interpreted by me (3pts min.). @ -yes X-rays interpreted by me (1pt min.). @ -yes negative for acute disease CT interpreted by me (1pt min.). @ -no U/S interpreted by me (1pt. min.). @ -no What testing was considered but not performed or refused? (CT, X-rays, U/S, labs)? Why? @ -none What meds were considered but not given or refused? Why? @ -none Did you discuss the management of the patient with other professionals (professionals i.e. , JANET, [employer] SELECTOR, lab, RT, psych nurse, psychiatric social worker supervisor, lacquer spray booth operator, teacher, staff air defense officer, rn case manager)? Give summary @ -no Was smoking cessation discussed for >3mins.? @ -no Was critical care preformed (if so, how long)? @ -yes31 Were there social determinants of health that impacted care today? How? (Home lessness, low income, unemployed, alcoholism, drug addiction, transportation, low edu. Level, literacy, decrease access to med. care, group home, rehab)? @ -none Was there de-escalation of care discussed even if they declined (Discuss DNR or withdrawal of care, Hospice)? DNR status @ -no What co-morbidities impacted this encounter? (DM, HTN, Smoking, COPD, CAD, Cancer, CVA, ARF, Chemo, Hep., AIDS, mental health diagnosis, sleep apnea, morbid obesity)? @ -none Was patient admitted / discharged? Hospital course, mention meds given and route, prescriptions, significant lab abnormalities, going to OR and other pertinent info. @ - 74 male to ER for acute chest pain history of CAD and patient will be admitted rule out ACS unstable angina Admitted Undiagnosed new problem with uncertain prognosis? @ -no Drug Therapy requiring intensive monitoring for toxicity (Heparin, Nitro, Insulin, Cardizem)? @ -no Were any procedures done? @ -no Diagnosis/symptom? @ -Acute ACS non-STEMI Acute, or Chronic, or Acute on Chronic? @ -Acute Uncomplicated (without systemic symptoms) or Complicated (systemic symptoms)? @ -Complicated Side effects of treatment? @ -no Exacerbation, Progression, or Severe Exacerbation? @ -exacerbation Poses a threat to life or bodily function? How? (Chest pain, [place], NM, pneumonia, PE, COPD, DKA, ARF, appy, cholecystitis, CVA, Diverticulitis, Homicidal, Suicidal, threat to staff... and all critical care pts) @ -yes QTc Reevaluation #5: Differential Chest Pain: Stable Angina, Unstable Angina, STEMI, NSTEMI Aortic Dissection, Pneumothorax, M usculoskeletal, Esophageal Spasm GERD, Cholecystitis, Pancreatitis, Zoster, this is not meant to be an all-inclusive list. - Consultations Consultation #1: Spoke with [facility] who agrees to admit this patient Chest Pain MDM - MDM 74 male to ER for acute chest pain history of CAD and patient will be admitted rule out ACS unstable angina Critical Care Time Critical Care Time: Yes Total Critical Care Time: 31 Disposition Clinical Impression: Chest pain, Unstable angina pectoris Disposition: ADMITTED IP TO THIS HOSP Condition: Serious Is patient prescribed a controlled substance at d/c from ED?: No Time of Disposition: 02:20
[2024-09-23 23:59] LABS: INR 0.9 (<1.2); Prothrombin Time 10.4 sec (10.0-12.5)
[2024-09-24 00:02] LABS: Partial Thromboplastin Time 21.4 sec (22.0-30.0)
[2024-09-24 00:08] LABS: ALT 31 U/L (4-49); AST 44 U/L (17-59); African American GFR (CKD) 87 (>60 ml/min/1.73 sqM); Albumin 4.5 g/dL (3.5-5.0); Alkaline Phosphatase 61 U/L (38-126); Anion Gap 9 mmol/L; Blood Urea Nitrogen 23 mg/dL (9-20); Calcium 9.7 mg/dL (8.4-10.2); Carbon Dioxide 25 mmol/L (22-30); Chloride 101 mmol/L (98-107); Glucose 93 mg/dL (74-99); Non-African American GFR(CKD) 75 (>60 ml/min/1.73 sqM); Potassium 3.8 mmol/L (3.5-5.1); Sodium 135 mmol/L (137-145); Total Bilirubin 0.9 mg/dL (0.2-1.3); Total Protein 7.4 g/dL (6.3-8.2)
--- NOTE | 2024-09-24 01:47 | XR ---
EXAM: XR Chest, 2 Views CLINICAL HISTORY: ITS.REASON XR Reason: Chest Pain TECHNIQUE: Frontal and lateral views of the chest. COMPARISON: 11/28/2022. FINDINGS: Lungs: Unremarkable. No consolidation. Pleural space: Unremarkable. No pneumothorax. Heart: Unremarkable. No cardiomegaly. Mediastinum: Unremarkable. Bones/joints: Unremarkable. IMPRESSION: No consolidation.
[2024-09-24] MEDS ORDERED: NITROGLYCERIN SL TABS 0.4 MG TAB SUBLINGUAL PRN (02:25)
[2024-09-24] MEDS ORDERED: MORPHINE SULFATE 4 MG/ML SYRINGE IV PRN (02:25)
[2024-09-24] MEDS: HEPARIN SOD,PORK IN 0.45% NACL 25,000 UNIT in 0.45% NACL 1 250ML.BAG IV SCH (02:45)
[2024-09-24] MEDS: ASPIRIN 81 MG PO STA (02:45)
[2024-09-24] MEDS: HEPARIN SODIUM 1,000 UN/ML (10ML VL) IV ONE (02:46)
--- NOTE | 2024-09-24 09:06 | P.CRDCN ---
History of Present Illness Consult date: 09/24/24 History of present illness: HISTORY OF PRESENTING ILLNESS: 74-year-old known to Dr. Ibarra. Prior history of CAD status post PCI in August 2022 to mid LCx, mid LAD, and residual mild to moderate disease in proximal LAD and distal LAD. Repeat heart cath in October 2022 showed there was critical stenosis involving the diagonal branch across the stented segment which was not intervened upon and he was treated medically. Last night patient was playing [employer] ball when he started having substernal chest heaviness that lasted for approximately half an hour. In the ER currently at the time of evaluation he is denying having any active chest pain chest pressure Admission Vitals: BP 138/71, heart rate 82, repeat 110/64, heart rate 64 Admission Labs: Hb 13, BUN 33, creatinine 1, troponin 0.02, repeat 0.1, repeat 0.49 Admission EKG: Admission ECG shows normal sinus rhythm with no significant ST-T wave changes at rest that are concerning for acute ischemia. Imaging: Chest x-ray does not show any signs of pulmonary congestion or consolidations REVIEW OF SYSTEMS: 14 point review of system is negative except what is mentioned above in HPI. PHYSICAL EXAMINATION: Neck: Brisk carotid upstroke, no jugular venous distention. Lungs: Clear to auscultation. Heart: Regular rate and rhythm, S1-S2, , no murmur or rub. Abdomen: Soft nontender, positive bowel sounds. Extremities: No edema, intact distal pulses. Neuro: Alert, oritented, no focal deficits. Detailed neuro exam was not performed. ASSESSMENT: # NSTEMI # History of CAD status post PCI to mid LCx and mid LAD August 2022 # Residual severe stenosis of jailed diagonal branch, mild to moderate proximal and distal LAD disease PLAN: IV heparin drip Continue aspirin 81 mg, Lipitor 80 mg Obtain echocardiogram, plan for cardiac authorization with Dr. Ibarra NT-proBNP lipids A1c TSH Ezio Torrez MD, FACC, RPVI Thank you for allowing [facility] to participate in this patient's care. Feel free to reach out in case of any followup questions. Past Medical History Past Medical History: Coronary Artery Disease (CAD), Hyperlipidemia Additional Past Medical History / Comment(s): 2 stents placed August 2022. vertigo History of Any Multi-Drug Resistant Organisms: None Reported Past Surgical History: Heart Catheterization With Stent Past Anesthesia/Blood Transfusion Reactions: No Reported Reaction Date of Last Stent Placement:: august 2022 Past Psychological History: No Psychological Hx Reported Smoking Status: Never smoker Past Alcohol Use History: None Reported Past Drug Use History: None Reported - Past Family History Father Family Medical History: Congestive Heart Failure (CHF) Mother Family Medical History: Dementia Medications and Allergies Home Medications Medication Instructions Recorded Confirmed Type Levothyroxine Sodium [Levoxyl] 125 mcg PO DAILY 09/25/22 11/28/22 History Aspirin 81 mg PO DAILY #90 tab 09/27/22 11/28/22 Rx Atorvastatin [Lipitor] 80 mg PO HS #90 tab 09/27/22 11/28/22 Rx Nitroglycerin Sl Tabs [Nitrostat] 0.4 mg SUBLINGUAL Q5M PRN #100 tab 09/27/22 11/28/22 Rx Ticagrelor [Brilinta] 90 mg PO BID #180 tab 09/27/22 11/28/22 Rx Acetaminophen Tab [Tylenol] 650 mg PO Q6HR PRN tab 11/30/22 Rx Isosorbide Mononitrate ER [Imdur] 30 mg PO DAILY #90 tab 11/30/22 Rx predniSONE [Deltasone] 20 mg PO BID #8 tab 05/30/23 Rx Allergies Allergy/AdvReac Type Severity Reaction Status Date / Time No Known Allergies Allergy Verified 09/23/24 23:25 Physical Exam Vitals: Vital Signs Temp Pulse Resp BP Pulse Ox 09/24/24 06:00 64 17 110/64 98 09/24/24 03:37 59 L 17 129/68 97 09/24/24 02:48 57 L 16 134/81 98 09/24/24 01:50 55 L 18 138/80 98 09/23/24 23:22 98.1 F 82 18 138/71 97 Intake and Output 09/23/24 09/24/24 09/24/24 22:59 06:59 14:59 Other: Weight 90.718 kg Results 09/23/24 23:31 09/23/24 23:31 Cardiac Enzymes 09/23/24 09/23/24 09/24/24 Range/Units 23:31 23:31 03:22 AST 44 (17-59) U/L Troponin I 0.022 0.131 H* (0.000-0.034) ng/mL 09/24/24 Range/Units 06:28 AST (17-59) U/L Troponin I 0.496 H* (0.000-0.034) ng/mL Coagulation 09/23/24 09/24/24 Range/Units 23:31 03:22 PT 10.4 (10.0-12.5) sec APTT 21.4 L 52.2 H (22.0-30.0) sec CBC 09/23/24 Range/Units 23:31 WBC 8.51 (4.50-10.00) 10*3/uL RBC 4.25 L (4.40-5.60) 10*6/uL Hgb 13.5 (13.0-17.0) g/dL Hct 38.9 L (39.6-50.0) % Plt Count 190 (140-440) 10*3/uL Comprehensive Metabolic Panel 09/23/24 Range/Units 23:31 Sodium 135 L (137-145) mmol/L Potassium 3.8 (3.5-5.1) mmol/L Chloride 101 (98-107) mmol/L Carbon Dioxide 25 (22-30) mmol/L BUN 23 H (9-20) mg/dL Creatinine 1.00 (0.66-1.25) mg/dL Glucose 93 (74-99) mg/dL Calcium 9.7 (8.4-10.2) mg/dL AST 44 (17-59) U/L ALT 31 (4-49) U/L Alkaline Phosphatase 61 (38-126) U/L Total Protein 7.4 (6.3-8.2) g/dL Albumin 4.5 (3.5-5.0) g/dL Current Medications Generic Name Dose Route Start Last Admin Trade Name Freq PRN Reason Stop Dose Admin Aspirin 325 mg 09/25/24 09:00 Aspirin 325 Mg Tab PO DAILY [facility] Atorvastatin Calcium 80 mg 09/24/24 09:00 Atorvastatin 80 Mg Tab PO DAILY [facility] Heparin Sodium/Sodium Chloride 250 mls @ 10 mls/hr 09/24/24 02:30 09/24/24 02:45 25,000 unit/ Sodium Chloride IV 11.023 units/kg/hr .Q24H RAMOS 10 mls/hr Administration Protocol 11.023 UNITS/KG/HR Morphine Sulfate 4 mg 09/24/24 02:25 Morphine Sulfate 4 Mg/Ml Syringe IV Q4HR PRN Chest Pain Nitroglycerin 0.4 mg 09/24/24 02:25 Nitroglycerin Sl Tabs 0.4 Mg Tab SUBLINGUAL Q5M PRN Chest Pain Intake and Output 09/23/24 09/24/24 09/24/24 22:59 06:59 14:59 Other: Weight 90.718 kg 09/23/24 23:31 09/23/24 23:31
[2024-09-24] MEDS: ATORVASTATIN 80 MG TAB PO SCH (09:48)
[2024-09-24] MEDS ORDERED: ACETAMINOPHEN TAB 500 MG TAB PO PRN (10:22)
[2024-09-24 14:18] LABS: Mean Platelet Volume 9.6 fL (9.5-12.2); Platelet Count 178 10*3/uL (140-440)
--- NOTE | 2024-09-24 15:00 | P.HPIM ---
History of Present Illness H&P Date: 09/24/24 History of present illness: 74-year-old male patient with past medical history significant coronary artery disease status post PCI in August 2019 through to mid left circumflex, mid LAD and residual mild to moderate disease in the proximal LAD and distal LAD with repeat cardiac catheterization in October 2022showing critical stenosis involving the diagonal branch across the stented segment which was not intervened and was decided to be treated medically now presented with chest pain. Patient stated that last night he was playing pickle ball when he started to have substernal chest pain, heaviness, that approximately lasted for half an hour, was associated with some shortness of breath, denied any sweating, headache, palpitations. Patient denied any fever, chills, cough, sore throat, nausea vomiting diarrhea constipation abdominal pain dysuria urgency frequency weakness or numbness of extremities Patient is afebrile, heart rate 64, respirate 17, blood pressure 110/64, saturating 98% on room air. WBCs 8.5 hemoglobin 13.5 platelet 190. INR 0.9. CMP unremarkable. Initial troponin was negative, repeat troponin was elevated at 0.131, followed by 0.496. EKG showed normal sinus rhythm with no significant ST to T wave changes at rest Chest x-ray negative for acute process. Assessment and plan: NSTEMI: History of CAD status post PCI to mid left circumflex and mid LAD in August 2022 Residual severe stenosis of jailed diagonal branch, mild to moderate proximal and distal LAD disease Hypertension Hyperlipidemia Presented with chest pain while playing pickle ball Elevated troponin in the ED, EKG negative for acute changes Continue aspirin, statin, as needed sublingual nitroglycerin Heparin drip Telemetry Echocardiogram Cardiology consultedplan for cardiac catheterization. Hypothyroidism: Continue Synthroid DVT prophylaxis Currently on heparin drip. Monitor vital signs and labs Labs and medication were reviewed. Continue same treatment. Further recommendations as per clinical course of the patient PHYSICAL EXAMINATION: GENERAL: The patient is A&O x3, NAD HEENT: EOMI, Sclerae anicteric, Moist Mucous membranes Neck: Supple, Non tender, No JVD PULMONARY: Equal breath souds B/L, No wheezing, No crackles. CARDIOVASCULAR: S1, S2 present. No murmurs, rubs, or gallops. ABDOMEN: Soft, nontender, nondistended, normoactive bowel sounds. No guarding or rebound tenderness. MUSCULOSKELETAL: No edema, No cyanosis. No clubbing. Normal ROM. Intact peripheral pulses. NEUROLOGICAL: CN 2-12 grossly intact. No FND REVIEW OF SYSTEMS: CONSTITUTIONAL: No fever, no malaise, no fatigue. HEENT: No recent visual problems or hearing problems. Denied any sore throat. CARDIOVASCULAR: No chest pain, orthopnea, PND, no palpitations, no syncope. PULMONARY: No shortness of breath, no cough, no hemoptysis. GASTROINTESTINAL: No diarrhea, no nausea, no vomiting, no abdominal pain. NEUROLOGICAL: No headaches, no weakness, no numbness. HEMATOLOGICAL: Denies any bleeding or petechiae. GENITOURINARY: Denies any burning micturition, frequency, or urgency. MUSCULOSKELETAL/RHEUMATOLOGICAL: Denies any joint pain, swelling, or any muscle pain. ENDOCRINE: Denies any polyuria or polydipsia. The rest of the 14-point review of systems is negative. Dictation was produced using [employer] dictation software. please excuse any grammatical, word or spelling errors. Past Medical History Past Medical History: Coronary Artery Disease (CAD), Hyperlipidemia Additional Past Medical History / Comment(s): 2 stents placed August 2022. vertigo History of Any Multi-Drug Resistant Organisms: None Reported Past Surgical History: Heart Catheterization With Stent Past Anesthesia/Blood Transfusion Reactions: No Reported Reaction Date of Last Stent Placement:: august 2022 Past Psychological History: No Psychological Hx Reported Smoking Status: Never smoker Past Alcohol Use History: None Reported Past Drug Use History: None Reported - Past Family History Father Family Medical History: Congestive Heart Failure (CHF) Mother Family Medical History: Dementia Medications and Allergies Home Medications Medication Instructions Recorded Confirmed Type Levothyroxine Sodium [Levoxyl] 125 mcg PO AC-BRKFST 09/25/22 09/24/24 History Atorvastatin [Lipitor] 80 mg PO HS #90 tab 09/27/22 09/24/24 Rx Aspirin 81 mg PO HS 09/24/24 09/24/24 History Allergies Allergy/AdvReac Type Severity Reaction Status Date / Time No Known Allergies Allergy Verified 09/24/24 10:55 Physical Exam Vitals: Vital Signs Temp Pulse Resp BP Pulse Ox 09/24/24 14:13 55 L 127/73 97 09/24/24 11:10 53 L 17 122/72 98 09/24/24 09:08 55 L 15 122/70 97 09/24/24 06:00 64 17 110/64 98 09/24/24 03:37 59 L 17 129/68 97 09/24/24 02:48 57 L 16 134/81 98 09/24/24 01:50 55 L 18 138/80 98 09/23/24 23:22 98.1 F 82 18 138/71 97 Intake and Output 09/23/24 09/24/24 09/24/24 22:59 06:59 14:59 Other: Weight 90.718 kg Results CBC & Chem 7: 09/24/24 06:28 09/23/24 23:31 Labs: Abnormal Lab Results - Last 24 Hours (Table) 09/23/24 09/23/24 09/23/24 Range/Units 23:31 23:31 23:31 RBC 4.25 L (4.40-5.60) 10*6/uL Hct 38.9 L (39.6-50.0) % MPV 8.9 L (9.5-12.2) fL APTT 21.4 L (22.0-30.0) sec Sodium 135 L (137-145) mmol/L BUN 23 H (9-20) mg/dL Troponin I (0.000-0.034) ng/mL 09/24/24 09/24/24 09/24/24 Range/Units 03:22 03:22 06:28 RBC (4.40-5.60) 10*6/uL Hct (39.6-50.0) % MPV (9.5-12.2) fL APTT 52.2 H (22.0-30.0) sec Sodium (137-145) mmol/L BUN (9-20) mg/dL Troponin I 0.131 H* 0.496 H* (0.000-0.034) ng/mL 09/24/24 Range/Units 09:32 RBC (4.40-5.60) 10*6/uL Hct (39.6-50.0) % MPV (9.5-12.2) fL APTT 49.7 H (22.0-30.0) sec Sodium (137-145) mmol/L BUN (9-20) mg/dL Troponin I (0.000-0.034) ng/mL
[2024-09-24 16:09] LABS: NT-Pro-B-Type Natriuretic Pept 176 pg/mL (0-125)
[2024-09-25 05:55] LABS: Glucose,Whole Blood 114 mg/dL (70-110)
[2024-09-25] MEDS: LEVOTHYROXINE 125 MCG TAB PO SCH (06:37)
[2024-09-25] MEDS ORDERED: HEPARIN SODIUM,PORCINE 10,000 UNIT in SODIUM CHLORIDE 0.9% 1,000 ML IRRIGATION PRN (07:00)
[2024-09-25] MEDS ORDERED: HEPARIN SODIUM,PORCINE (1 ML) 2,500 UNIT in SODIUM CHLORIDE 0.9% 250 ML IRRIGATION PRN (07:00)
[2024-09-25] MEDS: ASPIRIN 325 MG TAB PO SCH (08:34)
[2024-09-25] MEDS: SODIUM CHLORIDE 0.9% 1,000 ML in EMPTY BAG 1 BAG IV SCH ×2 (09:50→16:15)
[2024-09-25 10:21] LABS: Basophils # (A) 0.04 X 10*3/uL (0.00-0.10); Basophils % (A) 0.9 %; Eosinophils # (A) 0.15 X 10*3/uL (0.04-0.35); Eosinophils % (A) 3.3 %; HCT 40.5 % (39.6-50.0); HGB 13.2 g/dL (13.0-17.0); Lymphocytes # (A) 1.19 X 10*3/uL (0.90-5.00); Lymphocytes % (A) 26.2 %; MCH 30.1 pg (27.0-32.0); MCHC 32.6 g/dL (32.0-37.0); MCV 92.3 FL (80.0-97.0); Mean Platelet Volume 9.7 FL (9.5-12.2); Monocytes # (A) 0.45 X 10*3/uL (0.20-1.00); Monocytes % (A) 9.9 %; NRBC Per 100 WBC 0 X 10*3/uL (0.00-0.01); Neutrophils % (A) 59.5 %; Platelet Count 193 X 10*3/uL (140-440); RBC 4.39 X 10*6/uL (4.40-5.60); RDW 13.3 % (11.5-14.5); WBC 4.54 X 10*3/uL (4.50-10.00)
[2024-09-25 10:44] LABS: Blood Urea Nitrogen 12.7 mg/dL (9.0-27.0); Calcium 8.8 mg/dL (8.7-10.3); Carbon Dioxide 24.7 mmol/L (21.6-31.8); Chloride 106 mmol/L (96-109); Glucose 100 mg/dL (70-110); LDL Cholesterol,Calculated 79.5 mg/dL (0.0-131.0); Potassium 4.5 mmol/L (3.5-5.5); Sodium 139 mmol/L (135-145); VLDL Calculation 8.74 mg/dL (5.00-40.00)
--- NOTE | 2024-09-25 11:13 | CA ---
Transthoracic Echo Report Name: Jose Welch Age: 74 Gender: M : 1950 Exam Date: 09/25/2024 08:28 Exam Location: [facility] Ht (in): 73 Wt (lb): 200 Ordering Physician: Ezio Torrez MD ([id number]) Attending/Referring Phys: Publications Manager Fatmata Box RDCS Procedure CPT: Indications: cardiomyopathy, NSTEMI Cardiac Hx: Stent x2 2022 Technical Quality: Good Contrast 1: Total Dose (mL): Contrast 2: Total Dose (mL): MEASUREMENTS (Male / Female) Normal Values 2D ECHO LV Diastolic Diameter PLAX 5.0 cm 4.2 - 5.9 / 3.9 - 5.3 cm LV Systolic Diameter PLAX 3.4 cm IVS Diastolic Thickness 1.1 cm 0.6 - 1.0 / 0.6 - 0.9 cm LVPW Diastolic Thickness 1.2 cm 0.6 - 1.0 / 0.6 - 0.9 cm LV Relative Wall Thickness 0.5 LVOT Diameter 2.3 cm LV Diastolic Volume MOD BP 119.6 cm??? 67 - 155 / 56 - 104 cm??? LV Systolic Volume MOD BP 49.3 cm??? 22 - 58 / 19 - 49 cm??? LV Ejection Fraction MOD BP 58.8 % >= 55 % LV Cardiac Index MOD BP 1716.4 cm???/min???m??? LV Diastolic Volume MOD 4C 122.8 cm??? LV Systolic Volume MOD 4C 49.3 cm??? LV Ejection Fraction MOD 4C 59.9 % LV Cardiac Index MOD 4C 1794.5 cm???/min???m??? LV Diastolic Length 4C 8.1 cm LV Systolic Length 4C 6.5 cm LV Diastolic Volume MOD 2C 111.8 cm??? LV Systolic Volume MOD 2C 47.0 cm??? LV Ejection Fraction MOD 2C 58.0 % LV Cardiac Index MOD 2C 1581.1 cm???/min???m??? LV Diastolic Length 2C 7.7 cm LV Systolic Length 2C 6.2 cm LA Volume 72.3 cm??? 18 - 58 / 22 - 52 cm??? LA Volume Index 33.3 cm???/m??? 16 - 28 cm???/m??? Ascending Aorta Diameter 3.7 cm DOPPLER AV Peak Velocity 149.5 cm/s AV Peak Gradient 8.9 mmHg AV Mean Velocity 91.9 cm/s AV Mean Gradient 3.9 mmHg AV Velocity Time Integral 31.7 cm LVOT Peak Velocity 117.1 cm/s LVOT Peak Gradient 5.5 mmHg LVOT Velocity Time Integral 28.1 cm LVOT Stroke Volume 116.0 cm??? LVOT Stroke Volume Index 53.9 ml/m??? LVOT Cardiac Index 2830.8 cm???/min???m??? AV Area Cont Eq vti 3.7 cm??? AV Area Cont Eq pk 3.2 cm??? MV Area PHT 3.6 cm??? Mitral E Point Velocity 57.7 cm/s Mitral A Point Velocity 39.5 cm/s Mitral E to A Ratio 1.5 MV Deceleration Time 210.2 ms TR Peak Velocity 229.4 cm/s TR Peak Gradient 21.0 mmHg Right Atrial Pressure 5.0 mmHg Pulmonary Artery Systolic Pressu 26.0 mmHg Right Ventricular Systolic Press 26.0 mmHg PV Peak Velocity 94.2 cm/s PV Peak Gradient 3.6 mmHg FINDINGS Left Ventricle Left ventricular ejection fraction is estimated at 55-60 %. Mildly increased septal wall thickness. Left ventricular cavity size normal. No obvious regional wall motion abnormalities. Right Ventricle Normal right ventricular size and function. . Right ventricular systolic pressure within normal limits. Right Atrium Normal right atrial size. Left Atrium Mildly increased left atrial volume. Mitral Valve Mitral valve thickened. No evidence for mitral valve prolapse. No mitral stenosis. Trace mitral regurgitation. Aortic Valve Trileaflet aortic valve. Aortic valve sclerosis. No aortic valve stenosis or regurgitation. Tricuspid Valve Structurally normal tricuspid valve. No tricuspid stenosis. Trace to mild tricuspid regurgitation. Pulmonic Valve Structurally normal pulmonic valve. No pulmonic stenosis. Trace pulmonic regurgitation. Pericardium No pericardial effusion. Aorta Normal size aortic root and proximal ascending aorta. CONCLUSIONS LVEF 55% Mild concentric LVH No obvious regional wall motion abnormality Mild left atrial dilatation No significant valvular dysfunction appreciated No pericardial effusion RVSP estimated at 26 mmHg Previewed by: Dr Ezio Torrez (Electronically Signed) Final Date: 25 September 2024 11:12
[2024-09-25] MEDS: IV FLUID CONTINUATION 1,000 ML IV ONE (12:40)
[2024-09-25] MEDS: HEPARIN SODIUM,PORCINE (1 ML) 2,500 UNIT in SODIUM CHLORIDE 0.9% 250 ML IRRIGATION ONE (12:41)
[2024-09-25] MEDS: HEPARIN SODIUM (1,000 UNIT/ML) 1,000 UNIT in SODIUM CHLORIDE 0.9% 1,000 ML IRRIGATION ONE (12:41)
[2024-09-25] MEDS: fentaNYL (PF) 50 MCG/ML 2 ML AMP IVP ONE (12:50)
[2024-09-25] MEDS: MIDAZOLAM 2 MG/2 ML VIAL IVP ONE (12:50)
[2024-09-25] MEDS: LIDOCAINE 1% INJ 10MG/ML (20 ML MDV) SQ ONE (12:51)
[2024-09-25] MEDS: HEPARIN SODIUM 1,000 UN/ML (10ML VL) IVP ONE ×2 (12:54→13:50)
[2024-09-25] MEDS: TICAGRELOR 90 MG TAB PO ONE (13:15)
[2024-09-25] MEDS: IOPAMIDOL-370 100ML BTL INJ ONE ×2 (13:21→13:42)
[2024-09-25] MEDS: NITROGLYCERIN 1000MCG/10ML SYRINGE INTRAARTER ONE (13:37)
[2024-09-25] MEDS: niCARdipine Syringe (1,000 mcg/10 mL) INTRAARTER ONE (13:37)
[2024-09-25] MEDS ORDERED: RX INFO: IV CONTRAST WAS GIVEN 1 EACH MISC MISCELLANE PRN (13:43)
[2024-09-25] MEDS ORDERED: ZOLPIDEM 5 MG TAB PO PRN (13:43)
[2024-09-25] MEDS ORDERED: ATROPINE SULFATE 0.1 MG/ML 10ML SYRINGE IV PRN (13:43)
[2024-09-25] MEDS ORDERED: MAG HYDROX/AL HYDROX/SIMETH 30 ML CUP PO PRN (13:43)
[2024-09-25] MEDS ORDERED: NITROGLYCERIN SL TABS 0.4 MG TAB SUBLINGUAL PRN (13:43)
--- NOTE | 2024-09-25 13:48 | P.PCN ---
Date of Procedure: 09/25/24 Operative Findings: CARDIAC CATHETERIZATION AND PERCUTANEOUS CORONARY INTERVENTION PERFORMING PHYSICIAN: Jewel Valiente MD, [facility] PROCEDURE PERFORMED: 1. Selective right and left coronary angiogram and left heart catheterization 2. Successful stenting of mid LAD using 3.5 x 23 mm Xience CHIRAG postdilated u sing 4 mm NC balloon with an excellent angiographic results 3. Adjunctive use of IVUS and IFR 4. Ultrasound-guided access of the right radial artery INDICATION: Acute coronary syndrome COMPLICATION: None APPROACH: Right radial artery LEVEL OF SEDATION: Moderate with the sedation time off 53 minutes PROCEDURE DESCRIPTION: After obtaining informed consent the patient was brought to the cardiac Gold Stamper with the right radial artery was cannulated using micropuncture technique under ultrasound guidance a micropuncture wire passed easily then I placed a 6 [place] 11 cm sheath at the right radial artery and give the patient 2 mg of verapamil intra-arterial and 5000's of heparin intravenous with continuous ACT monitoring. Selective right and left coronary angiogram and left heart catheterization performed using JR4 and JL 3.5 and pigtail catheter. After that I decided to do an IFR of the left main and LAD. After zeroing the Dobler wire and equalized in between the Dobler wire and guiding catheter the left main was engaged using JL 3.5 guiding catheter and subsequently it was wired using the Dobler wire with IFR of the LAD came to be at 0.87 and left main at 0.93. I decided to intervene on the LAD. IVUS was performed and showed a diameter around 3.5 to 4 mm. I predilated using 3 mm NC balloon before I deployed 3.5 x 23 mm stent postdilated using 4 mm NC balloon and subsequently 3.5 mm NC balloon with high pressure. IVUS was performed after and showed good results and angiogram was performed and showed good results and the procedure was completed with no complication SELECTIVE CORONARY ANGIOGRAM: The right coronary artery: Large caliber vessel dominant vessel with no evidence of high-grade stenosis Left main: Has mild disease appears to be in the range of 20 to 30% with negative IFR The left circumflex: Large caliber vessel nondominant vessel with mild to moderate disease with no evidence of high-grade stenosis The left anterior descending artery: The stent in the proximal LAD appeared to be patent. The mid LAD has severe lesion which was stented as described above HEMODYNAMICS: The LVEDP was 10 mmHg with no significant gradient across aortic valve CONCLUSION: 1. Mild to moderate disease involving the ostial left main documented to be nonflow-limiting by Doppler wire with negative IFR 2. Patent stent in the proximal LAD. Severe disease involving the mid LAD documented to be flow-limiting by Doppler wire. I did perform successful PCI of the mid LAD as described above 3. Normal left-sided filling pressure POSTPROCEDURE MANAGEMENT: 1. Dual antiplatelet therapy using aspirin and prevent for 12 month 2. Aggressive cholesterol control 3. Follow-up with the patient
--- NOTE | 2024-09-25 14:45 | P.PN ---
Subjective Progress Note Date: 09/25/24 74-year-old male patient with past medical history significant coronary artery disease status post PCI in August 2019 through to mid left circumflex, mid LAD and residual mild to moderate disease in the proximal LAD and distal LAD with repeat cardiac catheterization in October 2022showing critical stenosis involving the diagonal branch across the stented segment which was not intervened and was decided to be treated medically now presented with chest pain. Patient stated that last night he was playing [employer] ball when he started to have substernal chest pain, heaviness, that approximately lasted for half an hour, was associated with some shortness of breath, denied any sweating, headache, palpitations. Patient denied any fever, chills, cough, sore throat, nausea vomiting diarrhea constipation abdominal pain dysuria urgency frequency weakness or numbness of extremities Patient is afebrile, heart rate 64, respirate 17, blood pressure 110/64, saturating 98% on room air. WBCs 8.5 hemoglobin 13.5 platelet 190. INR 0.9. CMP unremarkable. Initial troponin was negative, repeat troponin was elevated at 0.131, followed by 0.496. EKG showed normal sinus rhythm with no significant ST to T wave changes at rest Chest x-ray negative for acute process. 09/25. Patient seen and examined. Currently n.p.o., going for cardiac cath today . No further episodes of chest pain REVIEW OF SYSTEMS: CONSTITUTIONAL: No fever, no malaise,. CARDIOVASCULAR: No chest pain, no palpitations, no syncope. PULMONARY: No shortness of breath, no cough, GASTROINTESTINAL: No diarrhea, no nausea, no vomiting, no abdominal pain. NEUROLOGICAL: No headaches, no weakness, PHYSICAL EXAMINATION: GENERAL: The patient is alert and oriented x3, not in any acute distress. Well developed, well nourished. HEENT: Pupils are round and equally reacting to light. EOMI. No scleral icterus. No conjunctival pallor. Normocephalic, atraumatic. No pharyngeal erythema. No thyromegaly. CARDIOVASCULAR: S1 and S2 present. No murmurs, rubs, or gallops. PULMONARY: Chest is clear to auscultation, no wheezing or crackles. ABDOMEN: Soft, nontender, nondistended, normoactive bowel sounds. No palpable organomegaly. MUSCULOSKELETAL: No joint swelling or deformity. EXTREMITIES: No cyanosis, clubbing, or pedal edema. NEUROLOGICAL: Gross neurological examination did not reveal any focal deficits. SKIN: No rashes. Assessment and plan NSTEMI: History of CAD status post PCI to mid left circumflex and mid LAD in August 2022 Residual severe stenosis of jailed diagonal branch, mild to moderate proximal and distal LAD disease Hypertension Hyperlipidemia Presented with chest pain while playing pickle ball Elevated troponin in the ED, EKG negative for acute changes Continue aspirin, statin, as needed sublingual nitroglycerin Heparin drip Telemetry Echocardiogram Cardiology consultedplan for cardiac catheterization currently n.p.o. Hypothyroidism: Continue Synthroid DVT prophylaxis Currently on heparin drip Labs and medication were reviewed.. Continue same treatment. Continue with symptomatic treatment. Resume home medication. Monitor labs and vitals. DVT and GI prophylaxis. Further recommendations as per clinical course of the patient Dictation was produced using [employer] dictation software. please excuse any grammatical, word or spelling errors. Objective - Vital Signs Vital signs: Vital Signs Temp 97.7 F 09/25/24 07:40 Pulse 51 L 09/25/24 07:40 Resp 16 09/25/24 07:40 BP 132/76 09/25/24 07:40 Pulse Ox 97 09/25/24 07:40 FiO2 Intake & Output 09/24/24 09/25/24 09/25/24 18:59 06:59 18:59 Intake Total 250 Balance 250 Weight 90.718 kg Intake: Intake, IV Titration 250 Amount Heparin Sod,Pork in 0.45% 250 NaCl 25,000 unit In 0.45 % NaCl 1 250ml.bag @ 11. 023 UNITS/KG/HR 10 mls/hr IV .Q24H RAMOS Rx#: [id number] Other: Voiding Method Toilet # Voids 2 - Labs CBC & Chem 7: 09/25/24 07:27 09/23/24 23:31 Labs: Abnormal Lab Results - Last 24 Hours (Table) 09/24/24 09/25/24 09/25/24 Range/Units 06:28 05:54 07:27 RBC 4.39 L (4.40-5.60) X 10*6/uL APTT (22.0-30.0) sec POC Glucose (mg/dL) 114 H (70-110) mg/dL NT-Pro-B Natriuret Pep 176 H (0-125) pg/mL 09/25/24 Range/Units 07:27 RBC (4.40-5.60) X 10*6/uL APTT 64.1 H (22.0-30.0) sec POC Glucose (mg/dL) (70-110) mg/dL NT-Pro-B Natriuret Pep (0-125) pg/mL
[2024-09-25] MEDS: SODIUM CHLORIDE 0.9% 500 ML 500 ML IV ONE (17:31)
[2024-09-25] MEDS: TICAGRELOR 90 MG TAB PO SCH (21:46)
[2024-09-26 07:38] VITALS: BP 145/75; PULSE 53; RESP 16; TEMP 98
--- NOTE | 2024-09-26 08:15 | P.PN ---
Subjective Progress Note Date: 09/26/24 This is Angel Santiago NP, I'm dictating on behalf of Dr. Quevedo's H&P and A&P. Patient was interviewed and examined. Patient is a pleasant 74-year-old male who presented to the hospital with an NSTEMI, and underwent a coronary angiogram with left heart cath with stenting to the mid LAD. This morning the patient states that he has continued very minor chest discomfort, but otherwise feels okay. Nursing staff reports that he had an episode of syncope yesterday afternoon, without any injury. GENERAL: Well-appearing, well-nourished and in no acute distress. NECK: Supple without JVD or thyromegaly. LUNGS: Breath sounds clear to auscultation bilaterally. Respiration equal and unlabored. No wheezes, rales or rhonchi. HEART: Regular rate and rhythm without murmurs, rubs or gallops. S1 and S2 heard. EXTREMITIES: Normal range of motion, no edema. No clubbing or cyanosis. Peripheral pulses intact and strong. VITALS: Temp 98, pulse 53, respirations 16, blood pressure 145/75, O2 saturation 98% on room air TELEMETRY: Sinus mechanism LABS: White count 4.5, hemoglobin 13.2, platelets 193, sodium 139, potassium 4.5, chloride 106, BUN 12.7, creatinine 1, calcium 8.8, triglycerides 43.7, cholesterol 140, LDL 79.5, HDL 51.8 IMPRESSION: 1. NSTEMI, status post stenting to mid LAD 2. History of CAD status post PCI to mid LCx and mid LAD August 2022 3. Residual severe stenosis of diagonal branch, mild to moderate proximal and distal LAD disease PLAN: Continue current medications as prescribed. Allow patient to get up and walk in the hallway. If he does well without any significant symptoms, he can be discharged from a cardiology standpoint. Follow-up with Dr. Valiente in 1 week. Objective - Vital Signs Vital signs: Vital Signs Temp 98.0 F 09/26/24 07:37 Pulse 53 L 09/26/24 07:37 Resp 16 09/26/24 07:37 BP 145/75 09/26/24 07:37 Pulse Ox 98 09/26/24 07:37 FiO2 Intake & Output 09/25/24 09/26/24 09/26/24 18:59 06:59 18:59 Intake Total 100 Output Total 650 Balance 100 -650 Intake: IV 100 Output: Urine 650 Other: Voiding Method Urinal Urinal # Voids 1 2 - Labs CBC & Chem 7: 09/25/24 07:27 09/25/24 07:27 Labs: Abnormal Lab Results - Last 24 Hours (Table) 09/25/24 09/25/24 Range/Units 07:27 07:27 RBC 4.39 L (4.40-5.60) X 10*6/uL APTT 64.1 H (22.0-30.0) sec
[2024-09-26 08:23] LABS: Mean Platelet Volume 9.3 fL (9.5-12.2); Platelet Count 159 10*3/uL (140-440)
[2024-09-26 08:42] LABS: African American GFR (CKD) >90 (>60 ml/min/1.73 sqM); Non-African American GFR(CKD) 88 (>60 ml/min/1.73 sqM)
[2024-09-26] MEDS: ASPIRIN 81 MG PO SCH (09:43)
--- NOTE | 2024-09-26 10:30 | P.DS ---
Providers Date of admission: 09/24/24 08:44 Attending physician: Enrrique Casillas Consults: 09/24/24 02:25 Consult Physician Urgent Consulting Provider: Vicki Estevez Consult Reason/Comments: cp,ua Do you want consulting provider notified?: Yes 09/25/24 13:44 Consult Physician Routine Consulting Provider: [facility] Consult Reason/Comments: Post Interventional Patient Do you want consulting provider notified?: Already Contacted Primary care physician: Fanta Jones MD Hospital Course: Discharge diagnoses; NSTEMI: History of CAD status post PCI to mid left circumflex and mid LAD in August 2022 Residual severe stenosis of jailed diagonal branch, mild to moderate proximal and distal LAD disease Hypertension Hyperlipidemia Presented with chest pain while playing pickle ball Elevated troponin in the ED, EKG negative for acute changes Continue aspirin, statin, as needed sublingual nitroglycerin Heparin drip Telemetry Echocardiogram Cardiology consultedplan for cardiac catheterization currently n.p.o. 09/26. Status postcardiac cath with stenting of mid LAD. Being discharged on dual antiplatelet therapy Hypothyroidism: Continue Synthroid Hospital course; 74-year-old male patient with past medical history significant coronary artery disease status post PCI in August 2019 through to mid left circumflex, mid LAD and residual mild to moderate disease in the proximal LAD and distal LAD with repeat cardiac catheterization in October 2022showing critical stenosis involving the diagonal branch across the stented segment which was not intervened and was decided to be treated medically now presented with chest pain. Patient stated that last night he was playing pickle ball when he started to have substernal chest pain, heaviness, that approximately lasted for half an hour, was associated with some shortness of breath, denied any sweating, headache, palpitations. Patient denied any fever, chills, cough, sore throat, nausea vomiting diarrhea constipation abdominal pain dysuria urgency frequency weakness or numbness of extremities Patient is afebrile, heart rate 64, respirate 17, blood pressure 110/64, saturating 98% on room air. WBCs 8.5 hemoglobin 13.5 platelet 190. INR 0.9. CMP unremarkable. Initial troponin was negative, repeat troponin was elevated at 0.131, followed by 0.496. EKG showed normal sinus rhythm with no significant ST to T wave changes at rest Chest x-ray negative for acute process. 09/25. Patient seen and examined. Currently n.p.o., going for cardiac cath today . No further episodes of chest pain 09/26. Patient seen and examined. Patient underwent cardiac cath with stenting of LAD. Postprocedure patient is doing well. Cardiology recommended discharging patient on dual antiplatelet therapy. No beta-blockers at this time as patient is bradycardic. Outpatient follow-up with cardiology PHYSICAL EXAMINATION: GENERAL: The patient is alert and oriented x3, not in any acute distress. Well developed, well nourished. HEENT: Pupils are round and equally reacting to light. EOMI. No scleral icterus. No conjunctival pallor. Normocephalic, atraumatic. No pharyngeal erythema. No thyromegaly. CARDIOVASCULAR: S1 and S2 present. No murmurs, rubs, or gallops. PULMONARY: Chest is clear to auscultation, no wheezing or crackles. ABDOMEN: Soft, nontender, nondistended, normoactive bowel sounds. No palpable organomegaly. MUSCULOSKELETAL: No joint swelling or deformity. EXTREMITIES: No cyanosis, clubbing, or pedal edema. NEUROLOGICAL: Gross neurological examination did not reveal any focal deficits. SKIN: No rashes. Dictation was produced using [employer] dictation software. please excuse any grammatical, word or spelling errors. Patient Condition at Discharge: Fair Plan - Discharge Summary New Discharge Prescriptions: New Ticagrelor [Brilinta] 90 mg PO BID 30 Days #60 tab Continue Levothyroxine Sodium [Levoxyl] 125 mcg PO AC-BRKFST Atorvastatin [Lipitor] 80 mg PO HS #90 tab Aspirin 81 mg PO HS Discharge Medication List Levothyroxine Sodium [Levoxyl] 125 mcg PO AC-BRKFST 09/25/22 [History] Atorvastatin [Lipitor] 80 mg PO HS #90 tab 09/27/22 [Rx] Aspirin 81 mg PO HS 09/24/24 [History] Ticagrelor [Brilinta] 90 mg PO BID 30 Days #60 tab 09/26/24 [Rx] Follow up Appointment(s)/Referral(s): Fanta Jones MD [Primary Care Provider] - 1-2 days
[2024-09-26 15:14] VITALS: BMI 26.4
== END 2024-09-26 16:32 | disposition home or self-care (01) | DRG 322 ==
LOC: EC 23:20 → 6NMEDSUR 09-24 02:25 → OBSVTOIN 09-24 08:44 → 6NMEDSUR 09-24 10:59
PROVIDERS: ADMIT Hospitalist; ATTEND Hospitalist
PROC: B2111ZZ Fluoroscopy of Multiple Coronary Arteries using Low Osmolar Contrast (ICD-10-PCS; principal; 2024-09-25 12:00)
PROC: B240ZZ3 Ultrasonography of Single Coronary Artery, Intravascular (ICD-10-PCS; principal; 2024-09-25 12:00)
PROC: 4A023N7 Measurement of Cardiac Sampling and Pressure, Left Heart, Percutaneous Approach (ICD-10-PCS; principal; 2024-09-25 12:00)
PROC: 027034Z Dilation of Coronary Artery, One Artery with Drug-eluting Intraluminal Device, Percutaneous Approach (ICD-10-PCS; principal; 2024-09-25 12:00)
DX: I21.4 Non-ST elevation (NSTEMI) myocardial infarction (principal); E03.9 Hypothyroidism, unspecified; I10 Essential (primary) hypertension; E78.5 Hyperlipidemia, unspecified; I25.10 Atherosclerotic heart disease of native coronary artery without angina pectoris; Z79.02 Long term (current) use of antithrombotics/antiplatelets; Z79.82 Long term (current) use of aspirin; Z79.890 Hormone replacement therapy; Z79.899 Other long term (current) drug therapy; Z95.5 Presence of coronary angioplasty implant and graft
CPT/HCPCS: 36415; 71046; 80048; 80053; 80061; 82565; 83036; 83735; 83880; 84443; 84484; 85025; 85049; 85610; 85730; 92978; 93005; 93306; 93458; 93799; 96365; 96366; 99291